=== PATIENT | male | born 1965 | race Hispanic/Latino ===

== ENCOUNTER 2016-10-11 05:39 | Emergency (ER) | payer MEDICAID, OTHER ==
[2016-10-11 05:39] VITALS: BMI 25.8
[2016-10-11] MEDS ORDERED: Sodium Chloride 0.9% 1,000 ML IV ONE (05:58)
[2016-10-11] MEDS ORDERED: Sodium Chloride 0.9% 1,000 ML ONE (06:02)
--- NOTE | 2016-10-11 06:03 | C.PDOC ---
History Of Present Illness 50 year old male, whose past medical history includes migraines, presents to the ER for evaluation of headache starting at 3am. Patient states that the symptoms feel similar to his previous migraines. He reports taking Depakote for his headaches, but states it did not help. He reports nausea and 2 episodes of vomiting. Denies dizziness, visual changes, extremity weakness, sensory changes , facial droop, slurred speech, neck pain, fever, seizure. Time Seen by Provider: 10/11/16 05:55 Chief Complaint (Nursing): Headache History Per: Patient History/Exam Limitations: no limitations Onset/Duration Of Symptoms: Hrs (Since 03:00) Current Symptoms Are (Timing): Still Present Preceeding Symptoms: None Associated Symptoms: Nausea, Vomiting Recent travel outside of the [place]: No Past Medical History Reviewed: Historical Data, Nursing Documentation, Vital Signs Vital Signs: Last Vital Signs Temp 99.0 F 10/11/16 07:03 Pulse 67 10/11/16 07:03 Resp 18 10/11/16 07:03 BP 121/78 10/11/16 07:03 Pulse Ox 97 10/11/16 07:03 - Medical History PMH: Migraine, Seizures Surgical History: No Surg Hx - [facility] Procedures APPLICATION OF SPLINT (09/04/14) REPLAC M/S IMMOB DEV NEC (09/07/14) VENOUS PUNCTURE NEC (02/16/12) Family History: States: Stroke (Father), Hypertension (Mother) - Social History Hx Tobacco Use: Yes Hx Alcohol Use: No Hx Substance Use: No - Immunization History Hx Tetanus Toxoid Vaccination: Yes Hx Influenza Vaccination: Yes Hx Pneumococcal Vaccination: Yes Review Of Systems Eyes: Negative for: Vision Change Gastrointestinal: Positive for: Nausea, Vomiting Musculoskeletal: Negative for: Neck Pain Neurological: Positive for: Headache. Negative for: Weakness, Numbness, Change in Speech, Seizures, Dizziness Physical Exam - Physical Exam Appears: Well, Non-toxic Skin: Normal Color, Warm, Dry Head: Atraumatic, Normacephalic Eye(s): bilateral: Normal Inspection, PERRL, EOMI, Other (no nystagmus) Ear(s): Bilateral: Normal Nose: Normal Oral Mucosa: Moist Throat: Normal, No Erythema Neck: Normal ROM Chest: Symmetrical, No Tenderness Cardiovascular: Rhythm Regular, No Murmur Respiratory: Normal Breath Sounds, No Rales, No Rhonchi, No Wheezing Gastrointestinal/Abdominal: Soft, No Tenderness Extremity: Bilateral: Atraumatic, Normal Color And Temperature, Normal ROM Pulses: Left Radial: Normal Neurological/Psych: Oriented x3, Normal Speech, Normal Cognition, Normal Cranial Nerves, No Cerebellar Signs, Normal Motor, Normal Sensation ED Course And Treatment O2 Sat by Pulse Oximetry: 96 (Room air) Pulse Ox Interpretation: Normal Medical Decision Making Medical Decision Making: Impression: 51 y.o male with PMH migraine c.o headache, typical of usual headaches Plan: * IV NS * Reglan * Toradol re-eval: upon reevaluation patient reports feeling better, headache has much improved. He is tolerating PO. He remains alert and oriented with no neuro deficits and vital signs stable. Disposition Counseled Patient/Family Regarding: Diagnosis, Need For Followup, Rx Given - Disposition Referrals: [facility] [Outside] Disposition: HOME/ ROUTINE Disposition Time: 07:00 Condition: IMPROVED Additional Instructions: Please follow up with your neurologist Dr Hinson for further evaluation and with primary physician Continue with your current medications, you may also take fioricet as needed Prescriptions: Acetaminophen/Butalbital/Caf [Fioricet] 1 tab PO TID PRN #20 tab PRN Reason: Headache Instructions: Migraine Headache (ED) Forms: Work Excuse - POA Present On Arrival: None - Clinical Impression Clinical Impression: Migraine - Scribe Statement The provider has reviewed the documentation as recorded by the Scribe Chandrakant Dumont All medical record entries made by the Scribe were at my direction and personally dictated by me. I have reviewed the chart and agree that the record accurately reflects my personal performance of the history, physical exam, medical decision making, and the department course for this patient. I have also personally directed, reviewed, and agree with the discharge instructions and disposition.
[2016-10-11] MEDS ORDERED: Apap-Butalbital-Caffeine 325-50-40mg Tab PO STA (06:39)
[2016-10-11] MEDS ORDERED: Apap-Butalbital-Caffeine 325-50-40mg Tab ONE (06:46)
[2016-10-11 07:04] VITALS: BP 121/78; PULSE 67; RESP 18; TEMP 99
[2016-10-13 08:39] VITALS: O2SAT 96
== END 2016-10-11 07:05 | disposition home or self-care (01) ==
LOC: C.ER 05:39
DX: G43.909 Migraine, unspecified, not intractable, without status migrainosus (principal)
CPT/HCPCS: 96361; 96374; 96375; 99284; J1885; J2765; J7040

== ENCOUNTER 2016-10-11 20:31 | Emergency (ER) | payer OTHER ==
[2016-10-11 20:31] VITALS: BMI 25.8
[2016-10-11 20:42] VITALS: BP 110/68; PULSE 65; TEMP 97.6; O2SAT 98
--- NOTE | 2016-10-11 21:57 | C.PDOC ---
History Of Present Illness 51 year old patient, with a past medical history of migraines, presents to the ED complaining of a right sided headache that woke him up from sleepat 3 am last night. Patient visited the ED this morning, was given IV medications, and prescription for Fioricet. Patient states he still had a headache when he left the ED. He took 2-3 tabs of Fioricet throughout the day and 800 mg of Ibuprofen at 7 pm with no change of pain. Patient states the headache is similar to typical migraines. Patient also complains of occasional blurry vision and nausea , usual with headache. He had 3 episodes of vomiting this morning. Patient denies fever, chills, or neck stiffness, no weakness, numbness or tingling. Patient has been taking depakote for migraine prevention, and has not missed any doses. He had a normal head CT done by his neurologist about 4 weeks ago. In the past, he notes he has sometimes needed 2 ED visits to get rid of the headache and usually Percocet helps. Time Seen by Provider: 10/11/16 21:30 Chief Complaint (Nursing): Headache History Per: Patient History/Exam Limitations: no limitations Onset/Duration Of Symptoms: Days Current Symptoms Are (Timing): Still Present Severity: Mild Quality: Aching Associated Symptoms: Blurred Vision, Nausea, Vomiting. denies: Extremity Weakness Recent travel outside of the [place]: No Additional History Per: Patient Past Medical History Reviewed: Historical Data, Nursing Documentation, Vital Signs Vital Signs: Last Vital Signs Temp 97.6 F 10/11/16 20:40 Pulse 65 10/11/16 20:40 Resp 20 10/11/16 23:02 BP 110/68 10/11/16 20:40 Pulse Ox 98 10/12/16 00:44 - Medical History PMH: Migraine, Seizures - [facility] Procedures APPLICATION OF SPLINT (09/04/14) REPLAC M/S IMMOB DEV NEC (09/07/14) VENOUS PUNCTURE NEC (02/16/12) Family History: States: Stroke (Father), Hypertension (Mother) - Social History Hx Tobacco Use: Yes Hx Alcohol Use: No Hx Substance Use: No - Immunization History Hx Tetanus Toxoid Vaccination: Yes Hx Influenza Vaccination: Yes Hx Pneumococcal Vaccination: Yes Review Of Systems Except As Marked, All Systems Reviewed And Found Negative. Constitutional: Negative for: Fever, Chills Eyes: Positive for: Vision Change Gastrointestinal: Positive for: Nausea, Vomiting Musculoskeletal: Negative for: Neck Pain Neurological: Positive for: Headache. Negative for: Weakness, Numbness Physical Exam - Physical Exam Appears: Non-toxic, No Acute Distress Skin: Warm, Dry Head: Atraumatic, Normacephalic Eye(s): bilateral: Normal Inspection Ear(s): Bilateral: Normal Throat: Normal Neck: Normal ROM, No Midline Cervical Tenderness Chest: Symmetrical, No Deformity, No Tenderness Cardiovascular: Rhythm Regular, No Murmur Respiratory: Normal Breath Sounds, No Rales, No Rhonchi, No Wheezing Gastrointestinal/Abdominal: Soft, No Tenderness Extremity: No Pedal Edema, No Calf Tenderness Neurological/Psych: Oriented x3, Normal Speech, Normal Cognition, Normal Cranial Nerves, Normal Motor, Normal Sensation Gait: Steady ED Course And Treatment O2 Sat by Pulse Oximetry: 98 (room air) Pulse Ox Interpretation: Normal Progress Note: pt reports headache greatly reduced, not fully gone, but feels well enough to go home. pt advised to f/u with his neurologist tomorrow. Reevaluation Time: 22:52 Reassessment Condition: Improved Medical Decision Making Medical Decision Making: Impression: 51 y/o male c/o right sided headache since last night Plans: -Percocet Patient is in no acute distress. Pt was instructed to follow up with PMD if symptoms persist. Disposition Counseled Patient/Family Regarding: Diagnosis, Need For Followup - Disposition Disposition: HOME/ ROUTINE Disposition Time: 22:53 Condition: IMPROVED Additional Instructions: Follow up with your neurologist tomorrow. Take your Depakote as prescribed. Return to ER for any worsening or concerning symptoms- weakness, change in vision, change in speech or sensation. Instructions: Migraine Headache (ED) Forms: General Discharge Instructions - Clinical Impression Clinical Impression: Migraine - Scribe Statement The provider has reviewed the documentation as recorded by the Donteibabel oro All medical record entries made by the Donteibabel were at my direction and personally dictated by me. I have reviewed the chart and agree that the record accurately reflects my personal performance of the history, physical exam, medical decision making, and the department course for this patient. I have also personally directed, reviewed, and agree with the discharge instructions and disposition.
[2016-10-11] MEDS ORDERED: Oxycodone/Acetaminophen 5/325 mg Tab PO STA (22:01)
[2016-10-11] MEDS ORDERED: Oxycodone/Acetaminophen 5/325 mg Tab ONE (22:08)
[2016-10-11 23:02] VITALS: RESP 20
== END 2016-10-11 23:02 | disposition home or self-care (01) ==
LOC: C.ER 20:31
DX: G43.909 Migraine, unspecified, not intractable, without status migrainosus (principal)

== ENCOUNTER 2017-01-09 16:37 | Emergency (ER) | payer MEDICAID, OTHER ==
[2017-01-09 16:37] VITALS: BMI 25.8
--- NOTE | 2017-01-09 17:12 | C.PDOC ---
History Of Present Illness 51 yo male w/PMhx of chronic lower back edward, migraine, hx of sz, come in for evaluation of Right sided mid/lower back pain gradually developed since yesterday " after slipped and twisted my back". Pt sts, took Ibuprofen 800 mg yesterday without improvement. Today, pain is severe, localized, " my back stiff , pain to move". Pain is localized, worse with movement. Otherwise, pt denies complete fall, fever, chills, CP, SOB, dyspnea, diaphoresis, palpitation, abd. pain, N/V/D, UTi sx, saddle anesthesia, incontinence, denies weakness, sensory or vascular deficist to B/L LEs. AMbulate to ED for evaluation, not in any apparent distress. (Annabella Wong) History Per: Patient Onset/Duration Of Symptoms: Gradual Time Seen by Provider: 01/09/17 17:09 Chief Complaint (Nursing): Back Pain Past Medical History Reviewed: Historical Data, Nursing Documentation, Vital Signs - Medical History PMH: Anxiety, Migraine, Seizures Denies: Chronic Kidney Disease Family History: States: Stroke (Father), Hypertension (Mother) - Social History Hx Tobacco Use: Yes Hx Alcohol Use: No Hx Substance Use: No - Immunization History Hx Tetanus Toxoid Vaccination: Yes Hx Influenza Vaccination: Yes Hx Pneumococcal Vaccination: Yes Vital Signs: Last Vital Signs Temp 97.9 F 01/09/17 18:24 Pulse 65 01/09/17 18:24 Resp 20 01/09/17 18:24 BP 115/78 01/09/17 18:24 Pulse Ox 97 01/09/17 18:24 - [facility] Procedures APPLICATION OF SPLINT (09/04/14) REPLAC M/S IMMOB DEV NEC (09/07/14) VENOUS PUNCTURE NEC (02/16/12) Review Of Systems Except As Marked, All Systems Reviewed And Found Negative. Constitutional: Negative for: Fever, Chills ENT: Negative for: Throat Pain Cardiovascular: Negative for: Chest Pain, Palpitations Respiratory: Negative for: Cough, Shortness of Breath Gastrointestinal: Negative for: Nausea, Vomiting, Abdominal Pain, Diarrhea Genitourinary: Negative for: Dysuria, Frequency, Incontinence Musculoskeletal: Positive for: Back Pain. Negative for: Neck Pain Skin: Negative for: Rash, Bruising Neurological: Negative for: Weakness, Numbness Physical Exam - Physical Exam Appears: Well, No Acute Distress Skin: Normal Color, Warm, Dry, No Rash, No Ecchymosis Head: Atraumatic, Normacephalic Eye(s): bilateral: PERRL Neck: Normal ROM, No Midline Cervical Tenderness, No Paracervical Tenderness, No Step Off Deformity, Supple Chest: Symmetrical Cardiovascular: Rhythm Regular Respiratory: No Stridor, No Wheezing Gastrointestinal/Abdominal: Soft, No Tenderness Back: No CVA Tenderness, No Vertebral Tenderness, Decreased ROM (due to pain), Muscle Spasm, Paraspinal Tenderness (diffuse Right sided paraspinal thoracic extend down to upper lumbar tenderness with moderate muscle spasm. No midline tenderness, no deformity, no skin changes.) Extremity: No Tenderness, No Pedal Edema, No Deformity, No Swelling Neurological/Psych: Oriented x3, Normal Speech, Normal Motor, Normal Sensation, Normal Reflexes ED Course And Treatment O2 Sat by Pulse Oximetry: 98 Pulse Ox Interpretation: Normal Progress Note: Xray was offered to patient-refused, " no fall, I dont think I have fractures". On re-evaluation, pt is afebrile, hemodynamicaly stable. non- toxic. Ambulatory in ED with stable gait. PulseOx 98% RA. Neck: Supple, (-) midline tenderness. Lungs: CTA B/L, BS equal B/L. CVS: (+)S1S2, reg. Abd: Benign. back: (-) CVA tenderness. Pt has clinical findings c/w back strain. Pt advised. ref. to f/u with PM Din 2-3 days for re-eval. return to ED if any worsening or new changes. Disposition Counseled Patient/Family Regarding: Diagnosis, Need For Followup, Rx Given - Disposition Disposition Time: 17:44 - Disposition Referrals: [facility] [Outside] Disposition: HOME/ ROUTINE Condition: STABLE Additional Instructions: LIght duty, avoid physical activity for 1 week take medication for pain as prescribed as need Follow up with PMD in 2-3 days for re-evaluation. Return to ED if any worsening or new changes. Prescriptions: Methocarbamol [Robaxin] 500 mg PO TID #14 tab traMADol [Ultram] 50 mg PO TID #7 tab Instructions: Muscle Spasm (ED), Back Pain (ED) Forms: [employer] (Greenlandic), Work Excuse - Clinical Impression Clinical Impression: Thoracic back sprain
[2017-01-09 18:24] VITALS: BP 115/78; PULSE 65; RESP 20; TEMP 97.9
[2017-01-09 19:41] VITALS: O2SAT 98
== END 2017-01-09 18:40 | disposition home or self-care (01) ==
LOC: C.ER 16:37
DX: S23.3XXA Sprain of ligaments of thoracic spine, initial encounter (principal); X50.1XXA Overexertion from prolonged static or awkward postures, initial encounter; Y92.9 Unspecified place or not applicable
CPT/HCPCS: 96372; 99283; J1885

== ENCOUNTER 2017-01-16 03:20 | Emergency (ER) | payer OTHER ==
[2017-01-16 03:20] VITALS: BMI 25.8
[2017-01-16 03:26] VITALS: PULSE 76; RESP 16; O2SAT 98
[2017-01-16] MEDS ORDERED: Sodium Chloride 0.9% 1,000 ML IV ONE (03:33)
[2017-01-16 03:46] LABS: BASO # 0.1 K/uL (0.0-0.2); BASO % 1.1 % (0.0-2.0); EOS # 0.3 K/uL (0.0-0.7); EOS % 2.7 % (0.0-4.0); HEMATOCRIT 43.1 % (35.0-51.0); LYMPH # 4.3 K/uL (1.0-4.3); LYMPH % 45.9 % (20.0-40.0); MEAN CELL VOLUME 93.3 fL (80.0-94.0); MEAN CORPUSCULAR HEMOGLOBIN 33.2 pg (27.0-31.0); MEAN CORPUSCULAR HGB CONC 35.6 g/dL (33.0-37.0); MEAN PLATELET VOLUME 9.1 fL (7.2-11.7); MONO # 1.1 K/uL (0.0-0.8); MONO % 11.4 % (0.0-10.0); NRBC % 0.1 % (0.0-2.0); RED CELL DISTRIBUTION WIDTH 13.9 % (11.5-14.5); WHITE BLOOD COUNT 9.3 K/uL (4.8-10.8)
[2017-01-16] MEDS ORDERED: Sodium Chloride 0.9% 1,000 ML ONE (03:51)
[2017-01-16 04:00] LABS: CHLORIDE 102 mmol/L (98-107)
[2017-01-16 04:01] LABS: SODIUM 141 mmol/L (132-148)
[2017-01-16 04:03] LABS: ALB/GLOB RATIO 1.1 (1.0-2.1); ALKALINE PHOSPHATASE 117 U/L (38-126); AST/SGOT 26 U/L (17-59); BILIRUBIN,TOTAL 0.5 mg/dL (0.2-1.3); CARBON DIOXIDE 22 mmol/L (22-30); GFR AFRICAN-AMERICAN > 60; TOTAL PROTEIN 7.6 g/dL (6.3-8.3)
[2017-01-16 04:04] LABS: ALT/SGPT 38 U/L (21-72); BLOOD UREA NITROGEN 14 mg/dL (9-20); CALCIUM 9.2 mg/dl (8.6-10.4); GLUCOSE,RANDOM 123 mg/dL (75-110)
--- NOTE | 2017-01-16 04:12 | C.PDOC ---
History Of Present Illness 51 year old male who presents to the ER with a complaint of an anxiety reaction to his new repan medication. Patient reports he is feeling increasingly anxious ; denies difficulty breathing, difficulty swallowing, or itchiness. Chief Complaint (Nursing): Allergic Reaction History Per: Patient History/Exam Limitations: no limitations Onset/Duration Of Symptoms: Hrs Current Symptoms Are (Timing): Still Present Possible Cause: Medication Associated Symptoms: denies: Skin Rash, Swelling, Trouble Swallowing, Dizziness , Itching Home/EMS Treatment: None Recent travel outside of the [place]: No Past Medical History Reviewed: Historical Data, Nursing Documentation, Vital Signs Vital Signs: Last Vital Signs Temp 97.4 F L 01/16/17 03:25 Pulse 76 01/16/17 03:25 Resp 16 01/16/17 03:25 BP 122/85 01/16/17 03:25 Pulse Ox 98 01/16/17 04:43 - Medical History PMH: Anxiety, Migraine, Seizures - [facility] Procedures APPLICATION OF SPLINT (09/04/14) REPLAC M/S IMMOB DEV NEC (09/07/14) VENOUS PUNCTURE NEC (02/16/12) Family History: States: Stroke (Father), Hypertension (Mother) - Social History Hx Tobacco Use: Yes Hx Alcohol Use: No Hx Substance Use: No - Immunization History Hx Tetanus Toxoid Vaccination: Yes Hx Influenza Vaccination: Yes Hx Pneumococcal Vaccination: Yes Review Of Systems Constitutional: Negative for: Fever, Chills ENT: Negative for: Mouth Swelling, Throat Swelling Gastrointestinal: Negative for: Nausea, Vomiting, Diarrhea Skin: Negative for: Rash Psych: Positive for: Anxiety Physical Exam - Physical Exam Appears: Non-toxic, No Acute Distress, Other (Anxious, Alert, Conscious) Skin: Normal Color, Warm, Dry Head: Atraumatic, Normacephalic Oral Mucosa: Moist Chest: Symmetrical, No Tenderness Cardiovascular: Rhythm Regular, No Murmur Respiratory: Normal Breath Sounds, No Rales, No Rhonchi, No Wheezing Gastrointestinal/Abdominal: Soft, No Tenderness Neurological/Psych: Oriented x3, Normal Speech, Normal Cognition ED Course And Treatment - Laboratory Results Result Diagrams: 01/16/17 03:41 01/16/17 03:41 ECG: Interpreted By Me, Viewed By Me ECG Rhythm: Sinus Rhythm, ST/T Changes, Nonspecific Changes ECG Interpretation: No Acute Changes Interpretation Of ECG: NSR, non spc ST-T changes, abnormal tracings Rate From EC O2 Sat by Pulse Oximetry: 98 Pulse Ox Interpretation: Normal Progress Note: EKG ordered. Ativan and IV fluids administered. Disposition Counseled Patient/Family Regarding: Diagnosis - Disposition Referrals: [facility] at [facility] [Outside] Disposition: HOME/ ROUTINE Disposition Time: 05:00 Condition: STABLE Prescriptions: ALPRAZolam HALF TABLET [Xanax HALF TABLET] 0.125 mg PO TID #7 tab Instructions: Anxiety (ED), Caffeine Use (ED) Forms: [employer] (Bermudian) - Clinical Impression Clinical Impression: Anxiety, Caffeine adverse reaction - Scribe Statement The provider has reviewed the documentation as recorded by the Scribe Chandrakant Dumont All medical record entries made by the Scribe were at my direction and personally dictated by me. I have reviewed the chart and agree that the record accurately reflects my personal performance of the history, physical exam, medical decision making, and the department course for this patient. I have also personally directed, reviewed, and agree with the discharge instructions and disposition.
[2017-01-16] MEDS ORDERED: DiphenhydrAMINE 50 mg/ml Inj IM STA (04:24)
[2017-01-16] MEDS ORDERED: DiphenhydrAMINE 50 mg/ml Inj ONE (04:27)
[2017-01-16 05:11] VITALS: BP 115/80; TEMP 97.6
--- NOTE | 2017-01-18 11:52 | CARD ---
APPROVED REPORT EKG Measurement Heart [id number] <Conclusion> Normal sinus rhythm Nonspecific T wave abnormality Abnormal ECG
== END 2017-01-16 05:11 | disposition home or self-care (01) ==
LOC: C.ER 03:20 → SUPCPDRO 03:20 → C.ER 05:11
DX: F41.9 Anxiety disorder, unspecified (principal); T43.615A Adverse effect of caffeine, initial encounter
CPT/HCPCS: 80053; 80164; 85025; 96372; 96374; 96376; 99284; J1200; J2060; J7040

== ENCOUNTER 2017-03-01 01:43 | Emergency (ER) | payer OTHER ==
[2017-03-01 01:43] VITALS: BMI 25.8
[2017-03-01 01:53] VITALS: RESP 16; O2SAT 97
[2017-03-01] MEDS ORDERED: Oxycodone/Acetaminophen 5/325 mg Tab PO STA ×2 (02:24→03:32)
--- NOTE | 2017-03-01 02:29 | C.PDOC ---
History Of Present Illness 51 year old patient, with a past medical history of migraines, presents to the ED complaining of a L sided migraine headache that started gradually this evening, states that he usually takes his depakote daily as prophylaxis with no improvement, also took motrin with no relief. Reports that symptoms are associated with nausea, and blurry vision with is typical of his aura. He states that his last normal head CT was a few months ago. Patient states the headache is similar to typical migraines, usually gets a dose of percocet in the ER with improvement. Patient denies fever, chills, or neck stiffness, no vomiting, no weakness, numbness or tingling. Neuro Cecilio Time Seen by Provider: 03/01/17 01:51 Chief Complaint (Nursing): Headache History Per: Patient History/Exam Limitations: no limitations Onset/Duration Of Symptoms: Days (1) Current Symptoms Are (Timing): Still Present Severity: Moderate Quality: Pressure Preceeding Symptoms: Visual Disturbances, Known Migraine Symptoms Associated Symptoms: Nausea Past Medical History Vital Signs: Last Vital Signs Temp 97.7 F 03/01/17 01:51 Pulse 70 03/01/17 01:51 Resp 16 03/01/17 01:51 BP 130/92 H 03/01/17 01:51 Pulse Ox 97 03/01/17 02:33 - Medical History PMH: Anxiety, Migraine, Seizures Denies: Chronic Kidney Disease - [facility] Procedures APPLICATION OF SPLINT (09/04/14) REPLAC M/S IMMOB DEV NEC (09/07/14) VENOUS PUNCTURE NEC (02/16/12) Family History: States: Stroke (Father), Hypertension (Mother) - Social History Hx Tobacco Use: Yes Hx Alcohol Use: No Hx Substance Use: No - Immunization History Hx Tetanus Toxoid Vaccination: Yes Hx Influenza Vaccination: Yes Hx Pneumococcal Vaccination: Yes Review Of Systems Constitutional: Negative for: Fever, Weakness, Malaise Eyes: Negative for: Pain, Vision Change, Redness ENT: Negative for: Ear Pain, Nose Pain, Mouth Pain Cardiovascular: Negative for: Chest Pain, Palpitations Respiratory: Negative for: Cough, Shortness of Breath Gastrointestinal: Negative for: Nausea, Vomiting, Abdominal Pain Musculoskeletal: Negative for: Neck Pain, Back Pain Skin: Negative for: Rash, Lesions, Jaundice Neurological: Negative for: Weakness, Numbness, Incoordination, Change in Speech , Confusion, Altered Mental Status Psych: Negative for: Anxiety, Depression, Psychosis Physical Exam - Physical Exam Appears: Well, Non-toxic, In Acute Distress (moderate painful distress) Skin: Normal Color, Warm, Dry, No Pale, No Rash, No Jaundice Head: Atraumatic, Normacephalic Eye(s): bilateral: Normal Inspection, PERRL, EOMI Ear(s): Bilateral: Normal Nose: Normal Oral Mucosa: Moist Throat: Normal, No Erythema, No Exudate Neck: Normal, Normal ROM, No Midline Cervical Tenderness, No Paracervical Tenderness, Supple Lymphatic: No Adenopathy Chest: Symmetrical, No Deformity, No Tenderness Cardiovascular: Rhythm Regular, No Friction Rub, No Murmur Respiratory: Normal Breath Sounds, No Rales, No Rhonchi, No Wheezing Extremity: Normal ROM, No Tenderness, No Swelling Neurological/Psych: Oriented x3, Normal Speech, Normal Cognition, Normal Cranial Nerves, Normal Motor, Normal Sensation Gait: Steady ED Course And Treatment O2 Sat by Pulse Oximetry: 97 Medical Decision Making Medical Decision Making: Impression: 51 y/o male c/o L sided headache. Plans: -Percocet 1 tab po On first re-evaluation, patient reports that his headache is improving, however still has some pain and is requesting for another dose of medication for his headache. Patient given percocet 1 tab po. On second re-evaluation, patient reports significant improvement of his headache. Patient is in no acute distress. Repeat neuro exam shows no acute focal findings. Pt was instructed to follow up with PMD or neuro if symptoms persist. Disposition Counseled Patient/Family Regarding: Diagnosis, Need For Followup - Disposition Disposition: HOME/ ROUTINE Disposition Time: 03:45 Condition: IMPROVED Additional Instructions: Follow up with pmd or neuro in 2 days for re-evaluation. Return to the ER at any time for any new or worsening symptoms. 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
[2017-03-01] MEDS ORDERED: Oxycodone/Acetaminophen 5/325 mg Tab ONE ×2 (02:39→03:40)
[2017-03-01 03:44] VITALS: BP 118/78; PULSE 67; TEMP 97.8
== END 2017-03-01 03:50 | disposition home or self-care (01) ==
LOC: C.ER 01:43
DX: G43.909 Migraine, unspecified, not intractable, without status migrainosus (principal)

== ENCOUNTER 2017-03-12 18:54 | Emergency (ER) | payer OTHER ==
[2017-03-12 18:55] VITALS: BMI 25.8
[2017-03-12 19:01] VITALS: RESP 20; TEMP 97.3
[2017-03-12] MEDS ORDERED: Sodium Chloride 0.9% 1,000 ML IV ONE (19:22)
[2017-03-12] MEDS ORDERED: DiphenhydrAMINE 50 mg/ml Inj IVP STA (19:24)
[2017-03-12] MEDS ORDERED: Sodium Chloride 0.9% 1,000 ML ONE (19:31)
[2017-03-12] MEDS ORDERED: DiphenhydrAMINE 50 mg/ml Inj ONE (19:31)
--- NOTE | 2017-03-12 19:56 | C.PDOC ---
History Of Present Illness 51 year old male presents to the ED for evaluation of tingling sensation to left side face and left arm since 15:00 today. Patient reports developing a headache 2 hours after developing tingling sensation. He admits to photophobia, nausea, and lightheadedness, and states that these symptoms are typical of his migraines. He denies visual changes, facial droop, slurred speech, extremity weakness, chest pain, palpitations, shortness of breath. Patient tried taking 800mg ibuprofen prior to arrival. He has a history of seizures and is currently on depakote; neurologist is Dr. Hernandes. Code stroke called in ER triage prior to my evaluation of patient. Time Seen by Provider: 03/12/17 19:07 Chief Complaint (Nursing): Weakness/Neurological Deficit History Per: Patient History/Exam Limitations: no limitations Onset/Duration Of Symptoms: Hrs Current Symptoms Are (Timing): Still Present Associated Symptoms Preceding Syncopal Episode: Lightheadedness Fall Associated With With Symptoms: No Severity: Moderate Past Medical History Reviewed: Historical Data, Nursing Documentation, Vital Signs Vital Signs: Last Vital Signs Temp 97.3 F L 03/12/17 19:00 Pulse 74 03/12/17 20:52 Resp 20 03/12/17 20:52 BP 114/75 03/12/17 20:52 Pulse Ox 98 03/13/17 01:34 - Medical History PMH: Anxiety, Migraine, Seizures - [facility] Procedures APPLICATION OF SPLINT (09/04/14) REPLAC M/S IMMOB DEV NEC (09/07/14) VENOUS PUNCTURE NEC (02/16/12) Family History: States: Stroke (Father), Hypertension (Mother) - Social History Hx Tobacco Use: Yes Hx Alcohol Use: No Hx Substance Use: No - Immunization History Hx Tetanus Toxoid Vaccination: Yes Hx Influenza Vaccination: Yes Hx Pneumococcal Vaccination: Yes Review Of Systems Except As Marked, All Systems Reviewed And Found Negative. Eyes: Positive for: Other (Photophobia). Negative for: Vision Change Cardiovascular: Positive for: Light Headedness. Negative for: Chest Pain, Palpitations Respiratory: Negative for: Shortness of Breath Gastrointestinal: Positive for: Nausea. Negative for: Vomiting, Abdominal Pain Neurological: Positive for: Headache. Negative for: Weakness, Incoordination, Change in Speech, Confusion, Seizures, Altered Mental Status, Dizziness, Other ( Facial droop) Physical Exam - Physical Exam Appears: Well, Non-toxic, Other (Mild to moderate pain) Skin: Normal Color, Warm, Dry, No Rash Head: Atraumatic, Normacephalic Eye(s): bilateral: Normal Inspection, PERRL, EOMI Oral Mucosa: Moist Neck: Normal, Supple Cardiovascular: Rhythm Regular (Rate Regular) Respiratory: Normal Breath Sounds, No Rales, No Rhonchi, No Wheezing Extremity: Normal ROM Extremity: Bilateral: Atraumatic, Normal Color And Temperature, Normal ROM Neurological/Psych: Oriented x3, Normal Speech, Normal Cognition, Normal Cranial Nerves, No Cerebellar Signs, Normal Motor (5/5 motor strength all ext ) , Normal Sensation, No Dysarthria ED Course And Treatment - Laboratory Results Result Diagrams: 03/12/17 20:00 03/12/17 20:00 O2 Sat by Pulse Oximetry: 98 (RA) Pulse Ox Interpretation: Normal - CT Scan/US Head CT CT/US Interpretation: EXAM: CT Head Without Intravenous Contrast. EXAM DATE/ TIME: 03/12/2017 7:04 PM. CLINICAL HISTORY: 51 years old, male; Signs and symptoms; Dizziness and weakness, facial. TECHNIQUE: Axial computed tomography images of the head/brain without intravenous contrast. All CT scans at. this facility use one or more dose reduction techniques, viz.: automated exposure control; ma/kV. adjustment per patient size (including targeted exams where dose is matched to indication; i.e. head);. or iterative reconstruction technique. COMPARISON: No relevant prior studies available. FINDINGS: Brain : Unremarkable. No hemorrhage. No significant white matter disease. No edema. Ventricles: Unremarkable. No ventriculomegaly. Bones/joints: Unremarkable. No acute fracture. Soft tissues: Unremarkable. Sinuses: Unremarkable as visualized. No acute sinusitis. Mastoid air cells: Unremarkable as visualized. No mastoid effusion. IMPRESSION: No acute findings Progress Note: CT head done due to Code Stroke activation prior to my evaluation. Patient given IV NS bolus, IV reglan, IV benadryl IV toradol. Patient reassessed, still c/o headache - IV morphine ordered. Reevaluation Time: 22:00 Reassessment Condition: Improved (Patient resting comfortably, states his headache has resolved and he is feeling much better. Patient discharged home with Rx for Fiorecet. He was instructed to follow up with neurologist within 1 week, and understands he should return to ED if symptoms worsen.) Disposition Counseled Patient/Family Regarding: Studies Performed, Diagnosis, Need For Followup, Rx Given - Disposition Referrals: Gera Hernandes MD [Staff Provider] - Disposition: HOME/ ROUTINE Disposition Time: 22:00 Condition: STABLE Additional Instructions: FOLLOW UP WITH YOUR NEUROLOGIST WITHIN 1 WEEK USE MEDICATION NEEDED FOR MIGRAINE RETURN TO ER IF SYMPTOMS WORSEN Prescriptions: Acetaminophen/Butalbital/Caf [Fioricet] 1 tab PO TID PRN #20 tab PRN Reason: Headache Instructions: Migraine Headache (ED) Forms: [employer] (Gibraltarian) Print Language: DIVEHI - POA Present On Arrival: None - Clinical Impression Clinical Impression: Migraine - Scribe Statement The provider has reviewed the documentation as recorded by the Donteibabel Ceja Provider Attestation: All medical record entries made by the Donteibe were at my direction and personally dictated by me. I have reviewed the chart and agree that the record accurately reflects my personal performance of the history, physical exam, medical decision making, and the department course for this patient. I have also personally directed, reviewed, and agree with the discharge instructions and disposition.
[2017-03-12 20:09] LABS: BASO # 0.1 K/uL (0.0-0.2); BASO % 0.9 % (0.0-2.0); EOS # 0.2 K/uL (0.0-0.7); EOS % 3.6 % (0.0-4.0); HEMATOCRIT 41.7 % (35.0-51.0); LYMPH # 2.5 K/uL (1.0-4.3); LYMPH % 37.3 % (20.0-40.0); MEAN CELL VOLUME 95.4 fL (80.0-94.0); MEAN CORPUSCULAR HGB CONC 35.6 g/dL (33.0-37.0); MEAN PLATELET VOLUME 10.1 fL (7.2-11.7); MONO # 0.8 K/uL (0.0-0.8); MONO % 11.2 % (0.0-10.0); NRBC % 0.1 % (0.0-2.0); RED CELL DISTRIBUTION WIDTH 13.6 % (11.5-14.5); WHITE BLOOD COUNT 6.8 K/uL (4.8-10.8)
[2017-03-12 20:13] LABS: CHLORIDE 103 mmol/L (98-107); POTASSIUM 4.3 mmol/L (3.6-5.2); SODIUM 134 mmol/L (132-148)
[2017-03-12 20:15] LABS: GFR AFRICAN-AMERICAN > 60
[2017-03-12 20:16] LABS: ALB/GLOB RATIO 1.1 (1.0-2.1); ALKALINE PHOSPHATASE 86 U/L (38-126); ALT/SGPT 31 U/L (21-72); AST/SGOT 19 U/L (17-59); BILIRUBIN,TOTAL 0.4 mg/dL (0.2-1.3); BLOOD UREA NITROGEN 12 mg/dL (9-20); CALCIUM 8.8 mg/dl (8.6-10.4); CARBON DIOXIDE 21 mmol/L (22-30); GLUCOSE,RANDOM 103 mg/dL (75-110); TOTAL PROTEIN 7.7 g/dL (6.3-8.3)
[2017-03-12 20:52] VITALS: BP 114/75; PULSE 74
[2017-03-12 21:05] VITALS: O2SAT 98
--- NOTE | 2017-03-13 08:04 | CT ---
PROCEDURE: CT HEAD WITHOUT CONTRAST. HISTORY: WEAKNESS COMPARISON: None available. TECHNIQUE: Axial computed tomography images were obtained through the head/brain without intravenous contrast. Radiation dose: Total exam DLP = 1002 mGy-cm. This CT exam was performed using one or more of the following dose reduction techniques: Automated exposure control, adjustment of the mA and/or kV according to patient size, and/or use of iterative reconstruction technique. FINDINGS: HEMORRHAGE: No intracranial hemorrhage. BRAIN: No mass effect or edema. No atrophy or chronic microvascular ischemic changes. VENTRICLES: Unremarkable. No hydrocephalus. CALVARIUM: Unremarkable. PARANASAL SINUSES: Unremarkable as visualized. No significant inflammatory changes. MASTOID AIR CELLS: Unremarkable as visualized. No inflammatory changes. OTHER FINDINGS: None. IMPRESSION: No acute intracranial abnormality. If focal neurologic deficit persists, consider MRI. These findings were preliminarily reported at 7:20 p.m. on 03/12/[address] Sravani Wong from [facility].
== END 2017-03-12 21:40 | disposition home or self-care (01) ==
LOC: C.ER 18:54
DX: G43.909 Migraine, unspecified, not intractable, without status migrainosus (principal)
CPT/HCPCS: 70450; 80053; 82550; 82553; 84484; 85025; 85610; 85730; 96361; 96374; 96375; 99285; J1200; J1885; J2270; J2765; J7040

== ENCOUNTER 2017-07-05 06:24 | Emergency (ER) | payer OTHER ==
[2017-07-05 06:24] VITALS: BMI 25.8
[2017-07-05 06:32] VITALS: O2SAT 95
[2017-07-05] MEDS ORDERED: Sodium Chloride 0.9% 1,000 ML IV ONE (07:17)
[2017-07-05] MEDS ORDERED: Albuterol-Ipratrop 3 mg / 0.5 (3 ml) UD INH STA (07:19)
[2017-07-05] MEDS ORDERED: Sodium Chloride 0.9% 1,000 ML ONE (07:30)
[2017-07-05] MEDS ORDERED: Albuterol-Ipratrop 3 mg / 0.5 (3 ml) UD ONE (07:38)
--- NOTE | 2017-07-05 07:41 | C.PDOC ---
History Of Present Illness 52 y/o male with history of Seizures presents to ED with complaints of productive cough, congestion and body aches for 7 days. Patient reports cough is productive with yellow phlegm and reports tactile fever. Patient denies recent seizure activity, sick contacts, nausea, vomiting or any other complaints at this time. Time Seen by Provider: 07/05/17 07:12 Chief Complaint (Nursing): Flu-like Symptoms History Per: Patient History/Exam Limitations: no limitations Onset/Duration Of Symptoms: Days Current Symptoms Are (Timing): Still Present Associated Symptoms: Fever, Cough Past Medical History Reviewed: Historical Data, Nursing Documentation, Vital Signs Vital Signs: Last Vital Signs Temp 97.7 F 07/05/17 06:28 Pulse 86 07/05/17 06:28 Resp 22 07/05/17 06:28 BP 118/92 H 07/05/17 06:28 Pulse Ox 95 07/05/17 08:21 - Medical History PMH: Anxiety, Migraine, Seizures Surgical History: No Surg Hx - [facility] Procedures APPLICATION OF SPLINT (09/04/14) REPLAC M/S IMMOB DEV NEC (09/07/14) VENOUS PUNCTURE NEC (02/16/12) Family History: States: Stroke (Father), Hypertension (Mother) - Social History Hx Tobacco Use: Yes Hx Alcohol Use: No Hx Substance Use: No - Immunization History Hx Tetanus Toxoid Vaccination: Yes Hx Influenza Vaccination: Yes Hx Pneumococcal Vaccination: Yes Review Of Systems Except As Marked, All Systems Reviewed And Found Negative. Constitutional: Positive for: Fever ENT: Positive for: Nose Congestion Respiratory: Positive for: Cough Musculoskeletal: Positive for: Other (body aches) Physical Exam - Physical Exam Appears: Non-toxic, No Acute Distress Skin: Warm, Dry, No Rash Head: Atraumatic, Normacephalic Eye(s): bilateral: Normal Inspection Oral Mucosa: Moist Throat: Normal, No Erythema, No Exudate Neck: Supple Cardiovascular: Rhythm Regular Respiratory: Rales (bilaterally), No Rhonchi, No Wheezing Gastrointestinal/Abdominal: Soft, No Tenderness, No Guarding, No Rebound Neurological/Psych: Oriented x3 ED Course And Treatment - Laboratory Results Result Diagrams: 07/05/17 08:11 07/05/17 08:11 ECG: Interpreted By Me, Viewed By Me ECG Rhythm: Sinus Rhythm Interpretation Of ECG: T wave inversion in V1, V2- V6 Rate From EC (BPM) O2 Sat by Pulse Oximetry: 95 (RA) Pulse Ox Interpretation: Normal Medical Decision Making Medical Decision Making: Assessment: Bronchitis 0948: Patient improved. Will discharge home and treat as bronchitis. Advised patient to follow up with pmd in 2 days. Return to ER if symptoms worsens or progress. Disposition Counseled Patient/Family Regarding: Studies Performed, Diagnosis, Need For Followup, Rx Given - Disposition Referrals: Phani Galo DDS [Non-Staff] - Disposition: HOME/ ROUTINE Disposition Time: 09:49 Condition: IMPROVED Additional Instructions: follow up with your doctor in 2 days call to make an appointment take medications as prescribed return to ER if symptoms worsens or progress Prescriptions: Albuterol HFA [Ventolin HFA 90 mcg/actuation (8 g)] 2 puff IH [id number] #1 puff Azithromycin [Zithromax] 250 mg PO DAILY #4 tab Naproxen [Naprosyn] 500 mg PO BID PRN #16 tab PRN Reason: Pain, Moderate (4-7) Instructions: Acute Bronchitis (ED) Forms: [facility] (Uruguayan), General Discharge Instructions - Clinical Impression Clinical Impression: Bronchitis - Scribe Statement The provider has reviewed the documentation as recorded by the Scribe Kathy Byrd All medical record entries made by the Donteibabel were at my direction and personally dictated by me. I have reviewed the chart and agree that the record accurately reflects my personal performance of the history, physical exam, medical decision making, and the department course for this patient. I have also personally directed, reviewed, and agree with the discharge instructions and disposition.
[2017-07-05 08:19] LABS: BASO % 0.6 % (0.0-2.0); EOS # 0.1 K/uL (0.0-0.7); HEMOGLOBIN 14.4 g/dL (12.0-18.0); LYMPH # 1.3 K/uL (1.0-4.3); LYMPH % 16.4 % (20.0-40.0); MEAN CORPUSCULAR HEMOGLOBIN 32.7 pg (27.0-31.0); MEAN CORPUSCULAR HGB CONC 35.5 g/dL (33.0-37.0); MEAN PLATELET VOLUME 9.4 fL (7.2-11.7); MONO # 0.8 K/uL (0.0-0.8); MONO % 10.8 % (0.0-10.0); NEUT # 5.5 K/uL (1.8-7.0); NEUT % 71.2 % (50.0-75.0); NRBC % 0.1 % (0.0-2.0); RBC 4.4 Mil/uL (4.40-5.90); RED CELL DISTRIBUTION WIDTH 13.4 % (11.5-14.5); WHITE BLOOD COUNT 7.8 K/uL (4.8-10.8)
[2017-07-05 08:20] LABS: MEAN CELL VOLUME 92.2 fL (80.0-94.0)
[2017-07-05 08:31] LABS: ALB/GLOB RATIO 1.2 (1.0-2.1); ALBUMIN 3.8 g/dL (3.5-5.0); ALT/SGPT 23 U/L (21-72); AST/SGOT 25 U/L (17-59); BLOOD UREA NITROGEN 10 mg/dL (9-20); GFR AFRICAN-AMERICAN > 60; GFR NON-AFRICAN AMERICAN > 60
--- NOTE | 2017-07-05 09:33 | RAD ---
HISTORY: SOB COMPARISON: 07/31/2016 TECHNIQUE: Chest PA and lateral FINDINGS: LUNGS: No active pulmonary disease. PLEURA: No significant pleural effusion identified. No pneumothorax apparent. CARDIOVASCULAR: Normal. OSSEOUS STRUCTURES: No significant abnormalities. VISUALIZED UPPER ABDOMEN: Normal. OTHER FINDINGS: None. IMPRESSION: No active disease.
[2017-07-05] MEDS ORDERED: Divalproex 500 mg ER Tab PO SCH (10:00)
[2017-07-05] MEDS ORDERED: Divalproex 500 mg DR Tab PO ONE (10:00)
[2017-07-05 10:03] VITALS: BP 97/62; PULSE 70; RESP 18; TEMP 98.3
--- NOTE | 2017-07-07 23:23 | CARD ---
APPROVED REPORT EKG Measurement Heart [id number] <Conclusion> Normal sinus rhythm T wave abnormality, consider inferior ischemia T wave abnormality, consider anterolateral ischemia Abnormal ECG
== END 2017-07-05 10:20 | disposition home or self-care (01) ==
LOC: C.ER 06:24
DX: J40 Bronchitis, not specified as acute or chronic (principal); Z87.891 Personal history of nicotine dependence
CPT/HCPCS: 71046; 80053; 80164; 82550; 84484; 85025; 87804; 94640; 96361; 96374; 96375; 99284; J1885; J2405; J7040

== ENCOUNTER 2017-09-11 01:05 | Emergency (ER) | payer OTHER ==
[2017-09-11 01:06] VITALS: BMI 25.8
[2017-09-11 01:34] VITALS: O2SAT 96
--- NOTE | 2017-09-11 01:52 | C.PDOC ---
History Of Present Illness 52yo male with history of headaches, sleep apnea induces seizures and currently taking Depakote, presents to ED for evaluation after a seizure. Patient states earlier today he had a headache and napped, reports he awoke from his sleep due a sense of "inability to breathe." Patient states he has had similar episodes in past and usually as associated seizures with "inability to breathe." He is now complaining of generalized weakness and reports he bit his tongue. He denies any incontinence, headache, weakness, numbness. No other complaints. Time Seen by Provider: 09/11/17 01:30 Chief Complaint (Nursing): Seizure History Per: Patient History/Exam Limitations: no limitations Recent Seizure Activity Began: Unknown Quality Of Seizure: Generalized Past Medical History Reviewed: Historical Data, Nursing Documentation, Vital Signs Vital Signs: Last Vital Signs Temp 98 F 09/11/17 03:44 Pulse 66 09/11/17 03:44 Resp 16 09/11/17 03:44 BP 110/70 09/11/17 03:44 Pulse Ox 96 09/11/17 03:44 - Medical History PMH: Anxiety, Migraine, Seizures, Sleep Apnea Denies: Chronic Kidney Disease Surgical History: No Surg Hx - [facility] Procedures APPLICATION OF SPLINT (09/04/14) REPLAC M/S IMMOB DEV NEC (09/07/14) VENOUS PUNCTURE NEC (02/16/12) Family History: States: Stroke (Father), Hypertension (Mother) - Social History Hx Tobacco Use: Yes Hx Alcohol Use: No Hx Substance Use: No - Immunization History Hx Tetanus Toxoid Vaccination: Yes Hx Influenza Vaccination: Yes Hx Pneumococcal Vaccination: No Review Of Systems Except As Marked, All Systems Reviewed And Found Negative. ENT: Positive for: Other (tongue bite) Neurological: Positive for: Seizures. Negative for: Weakness, Numbness Physical Exam - Physical Exam Appears: Non-toxic, No Acute Distress Skin: Normal Color, Warm, Dry Head: Atraumatic, Normacephalic Eye(s): bilateral: Normal Inspection, PERRL, EOMI Nose: Normal Oral Mucosa: Moist Tongue: Other (superficial laceration to tongue) Neck: Normal ROM, Supple Chest: Symmetrical Cardiovascular: Rhythm Regular, No JVD Respiratory: Normal Breath Sounds Gastrointestinal/Abdominal: Normal Exam, Soft, No Tenderness Back: Normal Inspection Extremity: Normal ROM, No Deformity, No Swelling Neurological/Psych: Oriented x3, Normal Speech, Normal Cognition, Normal Cranial Nerves, Normal Motor, Normal Sensation ED Course And Treatment - Laboratory Results Result Diagrams: 09/11/17 02:03 09/11/17 02:03 O2 Sat by Pulse Oximetry: 96 (RA) Pulse Ox Interpretation: Normal Medical Decision Making Medical Decision Making: Impression: Seizures Plan: -- Labs -- UDS -- Urinalysis Time: 322 Labs reviewed and indicate sub-therapeutic depakote levels. Patient to be given Depakote 500mg PO and discharged home. Given instruction to follow up with neurologist in 2-3 days. Disposition - Disposition Referrals: [facility] [Outside] Disposition: HOME/ ROUTINE Disposition Time: : Condition: STABLE Instructions: Seizures, Adult (DC) Forms: [employer] (Mongolian) Print Language: SERBIAN - Clinical Impression Clinical Impression: Seizure - Scribe Statement The provider has reviewed the documentation as recorded by the Scribe (Rosemary Robbins) Provider Attestation: All medical record entries made by the Scribe were at my direction and personally dictated by me. I have reviewed the chart and agree that the record accurately reflects my personal performance of the history, physical exam, medical decision making, and the department course for this patient. I have also personally directed, reviewed, and agree with the discharge instructions and disposition.
[2017-09-11 02:30] LABS: ALBUMIN 3.9 g/dL (3.5-5.0); ALT/SGPT 13 U/L (21-72); AST/SGOT 21 U/L (17-59); BLOOD UREA NITROGEN 13 mg/dL (9-20); CALCIUM 8.8 mg/dl (8.6-10.4); GFR AFRICAN-AMERICAN > 60; GFR NON-AFRICAN AMERICAN > 60
[2017-09-11 02:41] LABS: BASO # 0.1 K/uL (0.0-0.2); BASO % 0.9 % (0.0-2.0); EOS # 0.3 K/uL (0.0-0.7); EOS % 2.1 % (0.0-4.0); HEMOGLOBIN 15.6 g/dL (12.0-18.0); LYMPH # 3.3 K/uL (1.0-4.3); LYMPH % 26.6 % (20.0-40.0); MEAN CELL VOLUME 93.6 fL (80.0-94.0); MEAN CORPUSCULAR HEMOGLOBIN 33.1 pg (27.0-31.0); MEAN CORPUSCULAR HGB CONC 35.3 g/dL (33.0-37.0); MEAN PLATELET VOLUME 9.1 fL (7.2-11.7); MONO % 7.9 % (0.0-10.0); NEUT # 7.8 K/uL (1.8-7.0); NEUT % 62.5 % (50.0-75.0); NRBC % 0.2 % (0.0-2.0); RBC 4.71 Mil/uL (4.40-5.90); RED CELL DISTRIBUTION WIDTH 13.5 % (11.5-14.5); WHITE BLOOD COUNT 12.4 K/uL (4.8-10.8)
[2017-09-11] MEDS ORDERED: Divalproex 500 mg DR Tab PO ONE (03:20)
[2017-09-11 03:45] VITALS: BP 110/70; PULSE 66; RESP 16; TEMP 98
== END 2017-09-11 03:49 | disposition home or self-care (01) ==
LOC: C.ER 01:05
DX: R56.9 Unspecified convulsions (principal); G47.30 Sleep apnea, unspecified; Z72.0 Tobacco use

== ENCOUNTER 2017-09-13 07:58 | Observation (INO) | payer OTHER ==
[2017-09-13 07:58] VITALS: BMI 25.8
--- NOTE | 2017-09-13 08:32 | C.PDOC ---
History Of Present Illness 52 year old male presents to the ED for evaluation of headache, new onset slurred speech, and right sided weakness which began at 0630 today. Patient has history of migraines and states, "Normally I get an aura and it goes away by itself but currently lasting longer than usual." He reports right facial numbness. Patient was seen on 09/11 after breakthrough seizure. He last took Depakote at 2030 yesterday. Patient is right handed. He states his speech has improved compared to prior but his headache is worsening and he has persistent facial numbness. CABRERA, NEW ONSET SLURRED SPEECH, R SIDED WEAKNESS SINCE 629. PS HO MIGRAINE, "NORMALLY I GET AN AURA AND IT GOES AWAY BY ITSELF BUT CURRENTLY LASTING LONGER THAN USUAL". +R FACE NUMBNESS. SEEN 09/11 S/P BREAKTHROUGH SEIZURE. LAST DEPAKOTE 2029 YEST. R HANDED. PS SPEECH IMPROVED COMPARED TO PRIOR BUT W WORSENING CABRERA, PERSIST FACIAL NUMBNESS. EXAM MILD DIST NONTOXIC HEENT EOMI NECK SUPPLE CV RRR NEURO SEE NIH; NO SZ ACTIVITY; AO3 REMAINDER NEG Time Seen by Provider: 09/13/17 08:17 Chief Complaint (Nursing): Weakness/Neurological Deficit History Per: Patient History/Exam Limitations: no limitations Onset/Duration Of Symptoms: Hrs Current Symptoms Are (Timing): Still Present Additional History Per: Patient Past Medical History Reviewed: Historical Data, Nursing Documentation, Vital Signs Vital Signs: Last Vital Signs Temp 97.7 F 09/13/17 15:10 Pulse 70 09/13/17 20:00 Resp 20 09/13/17 20:00 BP 100/57 L 09/13/17 20:00 Pulse Ox 99 09/13/17 22:33 - Medical History PMH: Anxiety, Migraine, Seizures, Sleep Apnea Surgical History: No Surg Hx - [facility] Procedures APPLICATION OF SPLINT (09/04/14) REPLAC M/S IMMOB DEV NEC (09/07/14) VENOUS PUNCTURE NEC (02/16/12) Family History: States: Stroke (Father), Hypertension (Mother) - Social History Hx Tobacco Use: Yes Hx Alcohol Use: No Hx Substance Use: No - Immunization History Hx Tetanus Toxoid Vaccination: Yes Hx Influenza Vaccination: Yes Hx Pneumococcal Vaccination: No Review Of Systems Neurological: Positive for: Weakness (right-sided ), Change in Speech (slurred) , Headache Physical Exam - Physical Exam Appears: Non-toxic, Other (in mild distress ) Skin: Normal Color, Warm, Dry Head: Atraumatic, Normacephalic Eye(s): bilateral: Normal Inspection Ear(s): Bilateral: Normal Nose: Normal, No Discharge Oral Mucosa: Moist Throat: Normal, No Erythema, No Exudate Neck: Supple Chest: Symmetrical, No Deformity, No Tenderness Cardiovascular: Rhythm Regular, No Murmur Respiratory: Normal Breath Sounds, No Rales, No Rhonchi, No Wheezing Extremity: Normal ROM, Capillary Refill (less than 2 seconds ) Neurological/Psych: Oriented x3, Other (see NIH. no seizure activity) ED Course And Treatment - Laboratory Results Result Diagrams: 09/13/17 08:44 09/13/17 08:44 ECG: Interpreted By Me ECG Rhythm: Sinus Rhythm ECG Interpretation: Normal Rate From EC O2 Sat by Pulse Oximetry: 99 (on RA) Pulse Ox Interpretation: Normal Progress Note: Bloodwork, CT Head, CTA Head, EKG, CXR ordered. Toradol IVP, Aspirin PO, Decadron IVP administered. NIHSS Stroke Scale - Date/Time Evaluation Performed Date Performed: 09/13/17 Time Performed: 08:32 When Was NIHSS Performed: Code Stroke - How Severe is the Stroke Level of Consciousness: 0=Alert LOC to Questions: 0=Both comments correct LOC to commands: 0=Obeys both correctly Best Gaze: 0=Normal Visual: 0=No visual loss Facial: 1=Minor asymmetry Motor Arm - Left: 0=No drift Motor Arm - Right: 0=No drift Motor Leg - Left: 0=No drift Motor Leg - Right: 0=No drift Limb Ataxia: 0=Absent Sensory: 1=Mild to moderate loss Best Language: 0=No aphasia Dysarthia: 1=Mild to moderate slurring Extinction & Inattention (Neglect): 0=Normal, no object Score: 3 NIHSS Stroke Scale 2 - Date/Time Evaluation Performed Date Performed: 09/13/17 Time Performed: 09:10 When Was NIHSS Performed: Code Stroke Re-evaluation - How Severe is the Stroke Level of Consciousness: 0=Alert LOC to Questions: 0=Both comments correct LOC to commands: 0=Obeys both correctly Best Gaze: 0=Normal Visual: 0=No visual loss Facial: 1=Minor asymmetry Motor Arm - Left: 0=No drift Motor Arm - Right: 0=No drift Motor Leg - Left: 0=No drift Motor Leg - Right: 0=No drift Limb Ataxia: 0=Absent Sensory: 1=Mild to moderate loss Best Language: 0=No aphasia Dysarthia: 0=Normal articulation Extinction & Inattention (Neglect): 0=Normal, no object Score: 2 Progress - Re-Evaluation Re-evaluation Note: 09/13/17 08:25 CODE STROKE ACTIVATED 09/13/17 09:08 D/W DR GOLDEN AWARE OF ER FINDINGS. MAGNESIUM, DECADRON, TORADOL, ASA. RECOMMENDS ADMISSION, WILL CONSULT 09/13/17 09:34 D/W DR DARNELL VASQUEZ RESPIRATORY THERAPY INSTRUCTOR AWARE OF ER FINDINGS WILL ADMIT - Data Reviewed Data Reviewed: Lab, Diagnostic imaging, EKG, Old records - Critical Care Citical Care: Excluding Proc Time Critical Care Time: 90 minutes - Continuity of Care Discussed patient case with:: Patient, On-call PMD-pt unassigned Discussed pt. case with financial analysis consultant/specialty: Neurology rTPA Inclusion/Exclusion - Refusal of Treatment Patient Refused Treatment: No - Inclusion Criteria for Altepase Patient is 18 years or Older: Yes The Clinical Diagnosis of Ischemic Stroke That is Causing a Potentially Disabling Neurological Deficit: Yes Time of Onset is Well Established to be Less Than 270 Minute Before Treatment Would Begin: No Risk/Benefit Discussed With Patient/Family Member Present: Yes - Exclusion Criteria for Altepase Uncontrolled Hypertension at Time of Treatment (Systolic BP above 185 or Diastolic BP above 110 mmHg): No Active Internal Bleeding: No Known Bleeding Diathesis Including but Not Limited to: Platelets Below 100,000/ mm,PTT Above 40 sec After Heparin Use, Current Use of Oral Anitcoagulant With INR Greater Than 1.7 or PT Greater Than 15 secs: No Evidence of an Intracranial Hemorrhage: No Evidence of Major Acute Infarct With Signs Greater Than 1/3 MCA Territory: No Suspicion of Subarachnoid Hemorrhage on Pretreatment Evaluation Even if CT Head Negative For Hemorrhage: No - Warning to TPA With Conditions Following Conditions Weighed Against Anticipated Benefit: No Condition: Stroke Serevity Too Mild, Care Team Unable to Determine Eligibilty, Seizure at Onset of Stroke (POSSIBLE ) Disposition Counseled Patient/Family Regarding: Studies Performed, Diagnosis, Need For Followup - Disposition Disposition: HOSPITALIZED Disposition Time: 09:35 Condition: SERIOUS - POA Present On Arrival: None - Clinical Impression Clinical Impression: Migraine, TIA (transient ischemic attack) - Scribe Statement The provider has reviewed the documentation as recorded by the Scribe (Lacey العلي) Provider Attestation: All medical record entries made by the Scribe were at my direction and personally dictated by me. I have reviewed the chart and agree that the record accurately reflects my personal performance of the history, physical exam, medical decision making, and the department course for this patient. I have also personally directed, reviewed, and agree with the discharge instructions and disposition. Decision To Admit - Pt Status Changed To: Hospital Disposition Of: Observation - . Bed Request Type: Telemetry Admitting Physician: Mary Stoner Patient Diagnosis: Migraine, TIA (transient ischemic attack)
[2017-09-13] MEDS ORDERED: Iodixanol 320 mg/ml 150 ml Bottle IV ONE (08:36)
--- NOTE | 2017-09-13 08:43 | CT ---
PROCEDURE: CT HEAD WITHOUT CONTRAST. HISTORY: Code Stroke COMPARISON: 03/12/2017. TECHNIQUE: Axial computed tomography images were obtained through the head/brain without intravenous contrast. Radiation dose: Total exam DLP = 886.80 mGy-cm. This CT exam was performed using one or more of the following dose reduction techniques: Automated exposure control, adjustment of the mA and/or kV according to patient size, and/or use of iterative reconstruction technique. FINDINGS: HEMORRHAGE: No intracranial hemorrhage. BRAIN: Nunez-white matter differentiation is preserved. There is no mass, mass effect or abnormal extra-axial fluid collection. There is no territorial infarction. VENTRICLES: The ventricles are normal in size, shape and configuration. CALVARIUM: The skull base and calvarium are normal. PARANASAL SINUSES: Predominantly clear. MASTOID AIR CELLS: Predominantly clear. OTHER FINDINGS: None. IMPRESSION: No acute intracranial abnormality. If there is a persistent focal neurologic deficit and an ongoing clinical concern for acute infarction, an MRI of the brain without intravenous contrast would be a more sensitive modality for evaluation of hyperacute/acute ischemic infarction. Important findings were discussed with Dr. Sylvia Slater in the ER on 09/13/2017 at 8:40 a.m.
[2017-09-13 08:49] LABS: BASO # 0.1 K/uL (0.0-0.2); BASO % 0.7 % (0.0-2.0); EOS # 0.1 K/uL (0.0-0.7); EOS % 1.2 % (0.0-4.0); HEMOGLOBIN 15.6 g/dL (12.0-18.0); LYMPH # 2.3 K/uL (1.0-4.3); LYMPH % 19.3 % (20.0-40.0); MEAN CELL VOLUME 92.6 fL (80.0-94.0); MEAN CORPUSCULAR HEMOGLOBIN 32.1 pg (27.0-31.0); MEAN CORPUSCULAR HGB CONC 34.7 g/dL (33.0-37.0); MEAN PLATELET VOLUME 9.2 fL (7.2-11.7); MONO # 0.7 K/uL (0.0-0.8); MONO % 5.8 % (0.0-10.0); NEUT # 8.8 K/uL (1.8-7.0); NRBC % 0.1 % (0.0-2.0); RBC 4.87 Mil/uL (4.40-5.90); RED CELL DISTRIBUTION WIDTH 13.1 % (11.5-14.5); WHITE BLOOD COUNT 12.1 K/uL (4.8-10.8)
--- NOTE | 2017-09-13 09:00 | CT ---
PROCEDURE: CTA HEAD AND NECK WITH CONTRAST HISTORY: CABRERA SLURRED SPEECH COMPARISON: None available. TECHNIQUE: Initial noncontrast head CT was performed. Subsequently, CT angiogram of the head and neck were performed after the intravenous administration of 80 mL of Omnipaque 350. Contiguous 1.5mm thick images were obtained in the axial plane of the neck. 2-D coronal and sagittal MPR images were obtained. Imaging postprocessing was performed with 3-D images also obtained. A delayed contrast head CT was also obtained. This CT exam was performed using one or more of the following dose reduction techniques: Automated exposure control, adjustment of the mA and/or kV according to patient size, and/or use of iterative reconstruction technique. Contrast dose: 100 mL Visipaque Radiation dose: Total exam DLP = 603.84 mGy-cm. FINDINGS: HEAD: Right: The intracranial internal carotid artery, and anterior and middle cerebral arteries are widely patent. Left: The intracranial internal carotid artery, and anterior and middle cerebral arteries are widely patent. Posterior circulation: The visualized intracranial vertebral arteries, basilar artery and posterior cerebral arteries are widely patent. Ther is no endoluminal filling defect to suggest thrombus. There is no intracranial saccular aneurysm. NECK: There is a three vessel aortic arch. There is no stenosis at the origins of the great vessels at the level of the aortic arch. Right Carotid: On the right, the common carotid, internal carotid and external carotid arteries are widely patent. There is no hemodynamically significant stenosis in the internal carotid artery by NASCET CT criteria. Left Carotid: On the left, the common carotid, internal carotid and external carotid arteries are widely patent. There is no hemodynamically significant stenosis in the internal carotid artery by anus CT criteria. The vertebral arteries are widely patent. The left vertebral artery is hypoplastic, an anatomic variant. The visualized soft tissues of the neck are normal. The visualized brain and cervical spine are within normal limits. There is paraseptal emphysema in the visualized lungs. IMPRESSION: 1. No evidence of intraluminal thrombus, definite significant stenosis or occlusion. 2. No evidence of hemodynamically significant stenosis by NASCET criteria. 3. Patent bilateral vertebral arteries. The left vertebral artery is hypoplastic, an anatomic variant.
[2017-09-13] MEDS ORDERED: Magnesium Sulfate 2 GM in Dextrose 5% In Water 250 ML IVPB ONE (09:05)
[2017-09-13 09:08] LABS: PROTHROMBIN TIME 11.5 SECONDS (9.7-12.2)
[2017-09-13 09:16] LABS: ALB/GLOB RATIO 1.1 (1.0-2.1); ALBUMIN 4.1 g/dL (3.5-5.0); ALT/SGPT 6 U/L (21-72); AST/SGOT 27 U/L (17-59); BLOOD UREA NITROGEN 13 mg/dL (9-20); GFR AFRICAN-AMERICAN > 60; GFR NON-AFRICAN AMERICAN > 60; HDL CHOLESTEROL 26 mg/dL (30-70)
[2017-09-13] MEDS ORDERED: Magnesium Sulfate 1 gm in D5W 2 GM/200 ML BAG IVPB ONE (09:18)
[2017-09-13] MEDS ORDERED: Sodium Chloride 0.9% 1,000 ML ONE (09:18)
[2017-09-13] MEDS: Sodium Chloride 0.9% 1,000 ML IV SCH ×3 (09:19→20:00)
--- NOTE | 2017-09-13 09:22 | RAD ---
HISTORY: Code Stroke COMPARISON: 07/05/2017 FINDINGS: LUNGS: No active pulmonary disease. PLEURA: No significant pleural effusion identified, no pneumothorax apparent. CARDIOVASCULAR: Normal. OSSEOUS STRUCTURES: No significant abnormalities. VISUALIZED UPPER ABDOMEN: Normal. OTHER FINDINGS: None. IMPRESSION: No active disease.
[2017-09-13 09:27] LABS: LDL CHOLESTEROL 99 mg/dL (0-129)
[2017-09-13] MEDS ORDERED: Oxycodone/Acetaminophen 5/325 mg Tab PO ONE (12:59)
--- NOTE | 2017-09-13 13:08 | CP.PCM.PN ---
Subjective - Date & Time of Evaluation Date of Evaluation: 09/13/17 Time of Evaluation: 13:05 - Subjective Subjective: PGY2 progress note for Dr. Stoner 52 year old male with past medical history of migraines with aura, seizure disorder, recently diagnosed GINA and tobacco abuse is admitted for right sided numbness and tingling. Pt was brought to hospital for right upper extremity and right facial numbness and tingling that began after pt woke up this morning at 6:30 am. Patient states that he though this was due to an aura preceding his migraine but symptoms did not improve which prompted him to come to ED. In the ED, CT head and CTA were normal. Pt was given decadron, magnesium, toradol in the ED. Currently, pt complains of severe migraine CABRERA located in the right temporal region pressure like in nature. HE accompanied with photophobia and nausea. Patient also has history of seizures. He states that he has tonic clonic seizures every night that are witnessed by the . Occasionally, with the seizures pt has tongue biting and postictal state. Patient has been on Depakote 2500 qd that he states he is compliant with. Currently, pt states numbness and tinling have improved. Denies having any weakness of extremities. Complains of severe headache. Denies having any N/V, abd pain, CP, SOB, F/C. PMHx: stated above Sx: left rotator cuff Social: 1.5 ppd x 300 years. No ETOH or drug use Meds: see [facility] Neuro: Dr. Hernandes Objective - Vital Signs/Intake and Output Vital Signs (last 24 hours): Temp Pulse Resp BP Pulse Ox 97.7 F 63 17 103/59 L 95 09/13/17 10:26 09/13/17 10:26 09/13/17 10:26 09/13/17 10:26 09/13/17 11:47 - Medications Medications: Current Medications Sodium Chloride (Sodium Chloride 0.9%) 1,000 mls @ 100 mls/hr IV .Q10H [facility] Last Admin: 09/13/17 09:19 Dose: 100 mls/hr - Labs Labs: 09/13/17 08:44 09/13/17 08:44 PT 11.5 SECONDS (9.7-12.2) 09/13/17 08:44 INR 1.0 09/13/17 08:44 APTT 36 SECONDS (21-34) H 09/13/17 08:44 - Constitutional Appears: Non-toxic, No Acute Distress - Head Exam Head Exam: ATRAUMATIC - ENT Exam ENT Exam: Mucous Membranes Moist - Respiratory Exam Respiratory Exam: Clear to Ausculation Bilateral. absent: Accessory Muscle Use , Rales, Rhonchi, Wheezes, Respiratory Distress - Cardiovascular Exam Cardiovascular Exam: REGULAR RHYTHM, +S1, +S2. absent: Diastolic murmur, Gallop , Rubs, Murmur - GI/Abdominal Exam GI & Abdominal Exam: Soft, Normal Bowel Sounds. absent: Distended, Firm, Guarding, Rigid, Tenderness, Organomegaly - Extremities Exam Extremities Exam: absent: Pedal Edema, Tenderness - Neurological Exam Neurological Exam: Alert, Awake, CN II-XII Intact, Motor Sensory Deficit, Oriented x3, Reflexes Normal Neuro motor strength exam: Left Upper Extremity: 5, Right Upper Extremity: 5, Left Lower Extremity: 5, Right Lower Extremity: 5 - Psychiatric Exam Psychiatric exam: Normal Affect, Normal Mood - Skin Skin Exam: Dry, Intact, Normal Color, Warm Assessment and Plan - Assessment and Plan (Free Text) Assessment: Complex migraine with aura - CT head and CTA were normal - Pt offered MRI without contrast but he refused stating he is claustrophobic. Per neuro, pt can have this test done outpt (script placed in pts chart) - Pt received decadron, magnesium and toradol in the ED - Neuro, Dr. Ferreira is consulted. - Patient was offered ketamine for headache. Patient refused at this time. - Will give patient Reglan IVP 10 mg once, Toradol 30 mg IVP, NS 100 cc Seizure disorder - Valproic acid level was low - Will give pt loading dose of valproic acid 1 gm IV - Will continue home dose of Depakote 500 mg po Q12 + Depakote 25mg po HS. Per neuro, pt to be discharged with this dose and follow up with neurologist outpt. COPD - Pt counselled on tobacco abuse - Nicotin patch Hypertriglyceridemia - Pt started on Crestor 5 mg po qd Prophylaxis - Lovenox - SCDs All orders and managements per Dr. Stoner
[2017-09-13] MEDS ORDERED: Valproate 1,000 MG in Sodium Chloride 0.9% 100 ML IVPB ONE (13:30)
--- NOTE | 2017-09-13 14:02 | CP.PCM.CON ---
History of Present Illness - History of Present Illness History of Present Illness: Mr. Lim is a 52-year-old man with a past medical history of sleep apnea, HTN, epilepsy (on depakote) and migraine headaches who presented to the ED complaining of right face/arm numbness and severe headache. His Depakote level was subtherapeutic. He was treated with depakote IV, magnesium sulfate IV and decadron IV as well as toradol. His headache improved somewhat, but he continues to complain of a 9/10 headache. The numbness is improved completely. He states that the headache is right sided, pressure-like and associated with nausea, photophobia, but no vomiting. CT and CTA of the head/neck were normal. Review of Systems - Review of Systems All systems: reviewed and no additional remarkable complaints except Past Patient History - Infectious Disease Hx of Infectious Diseases: None - Past Medical History & Family History Past Medical History?: Yes - Past Social History Smoking Status: Heavy Smoker > 10 Cigarettes Daily - CARDIAC Hx Cardiac Disorders: Yes Other/Comment: wpw - PULMONARY Hx Sleep Apnea: Yes - NEUROLOGICAL Hx Migraine: Yes Hx Seizures: Yes - HEENT Hx HEENT Problems: No - RENAL Hx Chronic Kidney Disease: No - ENDOCRINE/METABOLIC Hx Endocrine Disorders: No - HEMATOLOGICAL/ONCOLOGICAL Hx Blood Disorders: No Other/Comment: WP - INTEGUMENTARY Hx Dermatological Problems: No - MUSCULOSKELETAL/RHEUMATOLOGICAL Hx Musculoskeletal Disorders: No - GASTROINTESTINAL Hx Gastrointestinal Disorders: No - GENITOURINARY/GYNECOLOGICAL Hx Genitourinary Disorders: No - PSYCHIATRIC Hx Anxiety: Yes Hx Substance Use: No - SURGICAL HISTORY Hx Surgeries: Yes Hx Orthopedic Surgery: Yes (LEFT SHOULDER 2011) Other/Comment: Coronary Ablation for WPW 1994 - ANESTHESIA Hx Anesthesia: Yes Hx Anesthesia Reactions: No Meds Allergies/Adverse Reactions: Allergies Allergy/AdvReac Type Severity Reaction Status Date / Time Penicillins Allergy ANAPHYLAXIS Verified 09/13/17 08:21 - Medications Medications: Current Medications Sodium Chloride (Sodium Chloride 0.9%) 1,000 mls @ 100 mls/hr IV .Q10H [facility] Last Admin: 09/13/17 09:19 Dose: 100 mls/hr Valproate Sodium 1,000 mg/ (Sodium Chloride) 110 mls @ 100 mls/hr IVPB ONCE ONE Stop: 09/13/17 14:35 Physical Exam - Neurological Exam Neurological exam: Alert, CN II-XII Intact, Normal Gait, Oriented x3, Reflexes Normal Results - Vital Signs Recent Vital Signs: Last Vital Signs Temp 97.7 F 09/13/17 10:26 Pulse 63 09/13/17 10:26 Resp 17 09/13/17 10:26 BP 103/59 L 09/13/17 10:26 Pulse Ox 95 09/13/17 11:47 - Labs Result Diagrams: 09/13/17 08:44 09/13/17 08:44 Labs: Laboratory Results - last 24 hr 09/13/17 09/13/17 09/13/17 08:14 08:44 08:44 WBC 12.1 H RBC 4.87 Hgb 15.6 Hct 45.1 MCV 92.6 MCH 32.1 H MCHC 34.7 RDW 13.1 Plt Count 252 MPV 9.2 Neut % (Auto) 73.0 Lymph % (Auto) 19.3 L Cassia % (Auto) 5.8 Eos % (Auto) 1.2 Baso % (Auto) 0.7 Neut # (Auto) 8.8 H Lymph # (Auto) 2.3 Cassia # (Auto) 0.7 Eos # (Auto) 0.1 Baso # (Auto) 0.1 PT 11.5 INR 1.0 APTT 36 H Sodium Potassium Chloride Carbon Dioxide Anion Gap BUN Creatinine Est GFR ( Amer) Est GFR (Non-Af Amer) POC Glucose (mg/dL) 133 H Random Glucose Hemoglobin A1c Calcium Magnesium Total Bilirubin AST ALT Alkaline Phosphatase Troponin I Total Protein Albumin Globulin Albumin/Globulin Ratio Triglycerides Cholesterol LDL Cholesterol Direct HDL Cholesterol Valproic Acid Blood Type Antibody Screen 09/13/17 09/13/17 09/13/17 08:44 08:44 08:44 WBC RBC Hgb Hct MCV MCH MCHC RDW Plt Count MPV Neut % (Auto) Lymph % (Auto) Cassia % (Auto) Eos % (Auto) Baso % (Auto) Neut # (Auto) Lymph # (Auto) Cassia # (Auto) Eos # (Auto) Baso # (Auto) PT INR APTT Sodium 140 Potassium 3.9 Chloride 98 Carbon Dioxide 28 Anion Gap 17 BUN 13 Creatinine 1.1 Est GFR ( Amer) > 60 Est GFR (Non-Af Amer) > 60 POC Glucose (mg/dL) Random Glucose 115 H Hemoglobin A1c 5.6 Calcium 9.0 Magnesium 1.9 Total Bilirubin 0.5 AST 27 ALT 6 L D Alkaline Phosphatase 102 Troponin I < 0.0120 Total Protein 7.8 Albumin 4.1 Globulin 3.6 Albumin/Globulin Ratio 1.1 Triglycerides 855 H Cholesterol 252 H LDL Cholesterol Direct 99 HDL Cholesterol 26 L Valproic Acid Blood Type A NEGATIVE Antibody Screen Negative 09/13/17 08:46 WBC RBC Hgb Hct MCV MCH MCHC RDW Plt Count MPV Neut % (Auto) Lymph % (Auto) Cassia % (Auto) Eos % (Auto) Baso % (Auto) Neut # (Auto) Lymph # (Auto) Cassia # (Auto) Eos # (Auto) Baso # (Auto) PT INR APTT Sodium Potassium Chloride Carbon Dioxide Anion Gap BUN Creatinine Est GFR ( Amer) Est GFR (Non-Af Amer) POC Glucose (mg/dL) Random Glucose Hemoglobin A1c Calcium Magnesium Total Bilirubin AST ALT Alkaline Phosphatase Troponin I Total Protein Albumin Globulin Albumin/Globulin Ratio Triglycerides Cholesterol LDL Cholesterol Direct HDL Cholesterol Valproic Acid 40.0 L Blood Type Antibody Screen Assessment & Plan (1) Migraine Assessment and Plan: Likely complicated migraine. Will give another gram of depakote to get him therapeutic and continue home dose. Will give toradol 30 mg IV Q4, for two doses, as well as reglan 10 mg IV, and follow him for effect. I offered him ketamine, but he was not interested at this time. He refused MRI due to claustrophobia. We will re-assess. Thank you. Status: Acute Priority: High
[2017-09-13 15:57] VITALS: RESP 20
[2017-09-13] MEDS: Divalproex 500 mg DR Tab PO SCH (18:22)
[2017-09-13] MEDS ORDERED: Divalproex 250 mg DR Tab PO SCH (22:00)
[2017-09-14 01:08] VITALS: O2SAT 96
[2017-09-14] MEDS: Sodium Chloride 0.9% 1,000 ML IV SCH ×2 (05:30→06:16)
--- NOTE | 2017-09-14 07:22 | CP.PCM.PN ---
Subjective - Date & Time of Evaluation Date of Evaluation: 09/14/17 Time of Evaluation: 07:20 - Subjective Subjective: PGY2 progress note for Dr. Stoner Pt seen and examined at bedside. Nursing reports no acute events overnight. Patient denies headache, dizziness, lightheadedness, nausea, or vomiting. He is anxious to go home and will follow up with Dr. Hernandes. Objective - Vital Signs/Intake and Output Vital Signs (last 24 hours): Temp Pulse Resp BP Pulse Ox 98 F 66 20 105/62 96 09/13/17 23:55 09/13/17 23:55 09/13/17 23:55 09/13/17 23:55 09/13/17 23:55 - Medications Medications: Current Medications Divalproex Sodium (Depakote Dr) 1,000 mg PO BID [facility] Last Admin: 09/13/17 18:22 Dose: 1,000 mg Divalproex Sodium (Depakote Dr) 250 mg PO HS [facility] Last Admin: 09/13/17 21:46 Dose: 250 mg Enoxaparin Sodium (Lovenox) 40 mg SC DAILY [facility] Sodium Chloride (Sodium Chloride 0.9%) 1,000 mls @ 100 mls/hr IV .Q10H [facility] Last Admin: 09/14/17 06:16 Dose: 100 mls/hr Nicotine (Nicoderm Cq) 1 patch TD DAILY [facility] Last Admin: 09/13/17 18:53 Dose: 1 patch Rosuvastatin Calcium (Crestor) 5 mg PO HS [facility] Last Admin: 09/13/17 21:46 Dose: 5 mg - Labs Labs: 09/13/17 08:44 09/13/17 08:44 PT 11.5 SECONDS (9.7-12.2) 09/13/17 08:44 INR 1.0 09/13/17 08:44 APTT 36 SECONDS (21-34) H 09/13/17 08:44 - Additional Findings Additional findings: - Constitutional Appears: Non-toxic, No Acute Distress - Head Exam Head Exam: ATRAUMATIC - ENT Exam ENT Exam: Mucous Membranes Moist - Respiratory Exam Respiratory Exam: Clear to Ausculation Bilateral. absent: Accessory Muscle Use , Rales, Rhonchi, Wheezes, Respiratory Distress - Cardiovascular Exam Cardiovascular Exam: REGULAR RHYTHM, +S1, +S2. absent: Diastolic murmur, Gallop , Rubs, Murmur - GI/Abdominal Exam GI & Abdominal Exam: Soft, Normal Bowel Sounds. absent: Distended, Firm, Guarding, Rigid, Tenderness, Organomegaly - Extremities Exam Extremities Exam: absent: Pedal Edema, Tenderness - Neurological Exam Neurological Exam: Alert, Awake, CN II-XII Intact, Motor Sensory Deficit, Oriented x3, Reflexes Normal Neuro motor strength exam: Left Upper Extremity: 5, Right Upper Extremity: 5, Left Lower Extremity: 5, Right Lower Extremity: 5 - Psychiatric Exam Psychiatric exam: Normal Affect, Normal Mood - Skin Skin Exam: Dry, Intact, Normal Color, Warm Assessment and Plan - Assessment and Plan (Free Text) Plan: Complex migraine with aura - CT head and CTA were normal - Pt offered MRI without contrast but he refused stating he is claustrophobic. Per neuro, pt can have this test done outpt (script placed in pts chart) - Pt received decadron, magnesium and toradol in the ED - Neuro, Dr. Ferreira is consulted. - Patient was offered ketamine for headache. Patient refused at this time. - Will give patient Reglan IVP 10 mg once, Toradol 30 mg IVP, NS 100 cc Seizure disorder - Valproic acid level was low - Will give pt loading dose of valproic acid 1 gm IV - Will continue home dose of Depakote 500 mg po Q12 + Depakote 25mg po HS. Per neuro, pt to be discharged with this dose and follow up with neurologist outpt. COPD - Pt counselled on tobacco abuse - Nicotine patch Hypertriglyceridemia - Pt started on Crestor 5 mg po qd Prophylaxis - Lovenox - SCDs Disposition: Pt stable for discharge home. Will f/u with Dr. Hernandes as outpatient. Given scripts for ASA, Nicotine patch, and statin
--- NOTE | 2017-09-14 07:50 | CP.PCM.PN ---
Subjective - Date & Time of Evaluation Date of Evaluation: 09/14/17 Time of Evaluation: 07:47 - Subjective Subjective: Mr. Lim was seen and examined at the bedside. He is alert, oriented in all spheres. He denies any headache, dizziness, lightheadedness, nausea, or vomiting. He further claims of being at his baseline. He is able to follow all commands. He is being seen by Dr. Hernandes for his migraine. There was no untoward events overnight. Objective - Vital Signs/Intake and Output Vital Signs (last 24 hours): Temp Pulse Resp BP Pulse Ox 98 F 66 20 105/62 96 09/13/17 23:55 09/13/17 23:55 09/13/17 23:55 09/13/17 23:55 09/13/17 23:55 - Medications Medications: Current Medications Divalproex Sodium (Depakote Dr) 1,000 mg PO BID [facility] Last Admin: 09/13/17 18:22 Dose: 1,000 mg Divalproex Sodium (Depakote Dr) 250 mg PO [facility] Last Admin: 09/13/17 21:46 Dose: 250 mg Enoxaparin Sodium (Lovenox) 40 mg SC DAILY [facility] Sodium Chloride (Sodium Chloride 0.9%) 1,000 mls @ 100 mls/hr IV .Q10H [facility] Last Admin: 09/14/17 06:16 Dose: 100 mls/hr Nicotine (Nicoderm Cq) 1 patch TD DAILY [facility] Last Admin: 09/13/17 18:53 Dose: 1 patch Rosuvastatin Calcium (Crestor) 5 mg PO [facility] Last Admin: 09/13/17 21:46 Dose: 5 mg - Labs Labs: 09/13/17 08:44 09/13/17 08:44 PT 11.5 SECONDS (9.7-12.2) 09/13/17 08:44 INR 1.0 09/13/17 08:44 APTT 36 SECONDS (21-34) H 09/13/17 08:44 - Constitutional Appears: No Acute Distress - Head Exam Head Exam: NORMAL INSPECTION - Eye Exam Eye Exam: EOMI, Normal appearance, PERRL - ENT Exam ENT Exam: Mucous Membranes Moist, Normal Exam - Neurological Exam Neurological Exam: Alert, Awake, CN II-XII Intact, Normal Gait, Oriented x3 Neuro motor strength exam: Left Upper Extremity: 5, Right Upper Extremity: 5, Left Lower Extremity: 5, Right Lower Extremity: 5 Additional comments: He is alert, oriented in all spheres. Assessment and Plan (1) Migraine Assessment & Plan: Case discussed with Dr. Ferreira, continue all current medical regimen. September follow up with Dr. Hernandes ( pt. own's neurologis). This is a migraine not a TIA. From neurology perpective september d/c to home pending to primary team evaluation. Status: Acute
[2017-09-14 08:35] LABS: BASO % 0.3 % (0.0-2.0); EOS % 0.2 % (0.0-4.0); HEMOGLOBIN 13.7 g/dL (12.0-18.0); LYMPH # 2.5 K/uL (1.0-4.3); LYMPH % 15.7 % (20.0-40.0); MEAN CELL VOLUME 91.8 fL (80.0-94.0); MEAN CORPUSCULAR HGB CONC 35.9 g/dL (33.0-37.0); MEAN PLATELET VOLUME 9.4 fL (7.2-11.7); MONO # 1.2 K/uL (0.0-0.8); MONO % 7.7 % (0.0-10.0); NEUT # 11.9 K/uL (1.8-7.0); NEUT % 76.1 % (50.0-75.0); NRBC % 0.1 % (0.0-2.0); RBC 4.16 Mil/uL (4.40-5.90); RED CELL DISTRIBUTION WIDTH 13.2 % (11.5-14.5); WHITE BLOOD COUNT 15.7 K/uL (4.8-10.8)
[2017-09-14 08:50] LABS: ALB/GLOB RATIO 1.2 (1.0-2.1); ALBUMIN 3.7 g/dL (3.5-5.0); ALT/SGPT < 6 U/L (21-72); AST/SGOT 17 U/L (17-59); BLOOD UREA NITROGEN 13 mg/dL (9-20); CALCIUM 8.7 mg/dl (8.6-10.4); GFR AFRICAN-AMERICAN > 60; GFR NON-AFRICAN AMERICAN > 60
[2017-09-14 08:53] VITALS: BP 108/66; PULSE 56; TEMP 97.5
[2017-09-14] MEDS ORDERED: Enoxaparin 40 mg Syringe SC SCH (10:00)
[2017-09-14] MEDS: Divalproex 500 mg DR Tab PO SCH (10:29)
[2017-09-15] MEDS ORDERED: Pneumococcal 23-Valent Vaccine IM ONE (10:00)
--- NOTE | 2017-09-15 13:28 | CARD ---
APPROVED REPORT EKG Measurement Heart [id number] CT 124P60 [id number] <Conclusion> Normal sinus rhythm Nonspecific T wave abnormality Abnormal ECG
== END 2017-09-14 11:50 | disposition home or self-care (01) ==
LOC: C.ER 07:58 → C.6T 09:35
PROVIDERS: ADMIT Internal Medicine Pulmonary Disease; ATTEND Internal Medicine Pulmonary Disease
DX: G43.109 Migraine with aura, not intractable, without status migrainosus (principal); G40.909 Epilepsy, unspecified, not intractable, without status epilepticus; G47.33 Obstructive sleep apnea (adult) (pediatric); I10 Essential (primary) hypertension; J44.9 Chronic obstructive pulmonary disease, unspecified; F40.240 Claustrophobia; Z82.3 Family history of stroke; F17.210 Nicotine dependence, cigarettes, uncomplicated
CPT/HCPCS: 36415; 70450; 70496; 70498; 71045; 80053; 80061; 80164; 82948; 83036; 83735; 84484; 85025; 85610; 85730; 86850; 86900; 96365; 96374; 99285; G0378; J1100; J1885; J2405; J3475; J7040; J7060; Q9967

== ENCOUNTER 2018-02-26 20:50 | Emergency (ER) | payer OTHER ==
[2018-02-26 20:50] VITALS: BMI 25.8
[2018-02-26 21:00] VITALS: BP 126/87; PULSE 62; RESP 14; TEMP 97.4; O2SAT 97
[2018-02-26] MEDS ORDERED: Bacitracin 500 Units/gm Oint Foilpak UD ONE (21:51)
--- NOTE | 2018-02-26 22:33 | C.PDOC ---
History Of Present Illness 52 yo male come in for evaluation of left elbow injury sustained few hours [employer]. As per pt, slipped and fell down under the truck, hit the metal step with Left elbow". Pt reports, pain is localized over the left elbow, worse with left arm movement. Otherwise, pt denies head injury, LOC, syncope, headache, neck pain, CP, abd. pain, N/V, denies obvious deformity, weakness, sensory or vascular deficits to left arm. Ambulate to Ed for evaluation, not in any apparent distress. Time Seen by Provider: 02/26/18 21:15 Chief Complaint (Nursing): Upper Extremity Problem/Injury History Per: Patient Past Medical History Reviewed: Historical Data, Nursing Documentation, Vital Signs Vital Signs: Last Vital Signs Temp 97.4 F L 02/26/18 20:57 Pulse 62 02/26/18 20:57 Resp 14 02/26/18 20:57 BP 126/87 02/26/18 20:57 Pulse Ox 97 02/26/18 20:57 - Medical History PMH: Anxiety, Migraine, Seizures, Sleep Apnea Denies: Chronic Kidney Disease - [facility] Procedures APPLICATION OF SPLINT (09/04/14) REPLAC M/S IMMOB DEV NEC (09/07/14) VENOUS PUNCTURE NEC (02/16/12) Family History: States: Stroke (Father), Hypertension (Mother) - Social History Hx Tobacco Use: Yes Hx Alcohol Use: No Hx Substance Use: No - Immunization History Hx Tetanus Toxoid Vaccination: Yes (<5yrs ago) Hx Influenza Vaccination: Yes Hx Pneumococcal Vaccination: No Review Of Systems Except As Marked, All Systems Reviewed And Found Negative. Constitutional: Negative for: Fever Eyes: Negative for: Vision Change ENT: Negative for: Ear Discharge, Nose Discharge Cardiovascular: Negative for: Chest Pain Gastrointestinal: Negative for: Nausea, Vomiting Genitourinary: Negative for: Incontinence Musculoskeletal: Positive for: Other (Left elbow pain). Negative for: Neck Pain, Back Pain Skin: Positive for: Bruising Neurological: Negative for: Weakness, Numbness, Altered Mental Status, Headache, Dizziness Physical Exam - Physical Exam Appears: Well, Non-toxic, No Acute Distress Skin: Normal Color, Warm, Other (superficial abrasion to Left olecranon) Head: Atraumatic, Normacephalic Eye(s): bilateral: PERRL Neck: Normal ROM, No Midline Cervical Tenderness, No Paracervical Tenderness, No Step Off Deformity, Supple Extremity: Normal ROM (mild discomfor to Left elbow extension due to pain. No neurovascular deficits.), Tenderness (over Left olecranon of left elbow), Capillary Refill (less than 2sec to Left hand), No Deformity, No Swelling Neurological/Psych: Oriented x3, Normal Speech, Normal Motor, Normal Sensation, Normal Reflexes ED Course And Treatment O2 Sat by Pulse Oximetry: 97 Pulse Ox Interpretation: Normal - Other Rad Left elbow X-Ray: Interpreted by Me, Viewed By Me Interpretation: (+)ant. fat pad sign Progress Note: On re-eval, pt is afebrile, hemodynamicaly stable. NOn-toxic. Ambulatory in Ed with stable gait. Head: AT/NC. Neck: Supple, (-) midline tenderness. Right UE: mil dtenderness over olecranon of left elbow. FAROM, no neurovascular defiicts. Imaging review (-) acute fx. Shan wrap applied to left elbow, sling applied to left arm. Pt advised and ref. to f/u with Ortho in 2-3 dyas for re-eval. return to ED if any worsening or new changes. Disposition Counseled Patient/Family Regarding: Studies Performed, Diagnosis, Need For Followup, Rx Given - Disposition Referrals: Swati Tomlinson MD [Staff Provider] - Disposition: HOME/ ROUTINE Disposition Time: 21:55 Condition: STABLE Additional Instructions: Shan wrap to Left elbow for 1-2 weeks Sling for 1 week take pain medication as prescribed Follow up with Orthopedist in 2-3 days for re-evaluation. return to ED if any worsening or new changes. Prescriptions: traMADol [Ultram] 50 mg PO TID #7 tab Instructions: Elbow Fracture (DC) Forms: [employer] (Sami), Work Excuse - Clinical Impression Clinical Impression: Elbow fracture
--- NOTE | 2018-02-27 08:45 | RAD ---
Date of service: 02/26/2018 PROCEDURE: Radiographs of the left elbow. HISTORY: injury COMPARISON: No prior. FINDINGS: BONES: No fracture appreciated. Tiny anterior ulnar coronoid spurring present. Posterior olecranon cortical osseous hypertrophy. JOINTS: Trace osteoarthrosis SOFT TISSUES: Altered density a posterior distal forearm-elbow bordering soft tissues-correlate clinically with the injury site. JOINT EFFUSION: The anterior fat pad is very slightly visualized does not appear particularly lifted no large effusion here suggested. A trace effusion not excluded. No radial head fracture however is visualized. The anterior fat pad may be top-normal variant. OTHER FINDINGS: None IMPRESSION: The flat appearing anterior fat pad appearance no large effusion here appreciated. A trace effusion not excluded. Top normal variant appearance to the anterior fat pad is a consideration. No radial head fracture appreciated. Clinical follow-up recommended Minimal arthrosis Altered density a posterior distal forearm-elbow bordering soft tissues-correlate clinically with the injury site.
== END 2018-02-26 23:07 | disposition home or self-care (01) ==
LOC: C.ER 20:50
DX: S42.402A Unspecified fracture of lower end of left humerus, initial encounter for closed fracture (principal); W01.198A Fall on same level from slipping, tripping and stumbling with subsequent striking against other object, initial encounter; Y92.9 Unspecified place or not applicable

== ENCOUNTER 2018-04-25 10:28 | Emergency (ER) | payer OTHER ==
[2018-04-25 10:28] VITALS: BMI 25.8
[2018-04-25 10:41] VITALS: BP 124/83; PULSE 70; RESP 16; TEMP 97.6; O2SAT 98
--- NOTE | 2018-04-25 10:59 | C.PDOC ---
History Of Present Illness 52 year old male presents to the ED for evaluation of left upper thoracic back and muscle pain which began three days ago. Patient has been moving boxes for the past few days and states symptoms are worse with taking hot showers. Patient denies direct trauma/injury to the area, urinary/bowel incontinence, extremity numbness/weakness. Time Seen by Provider: 04/25/18 10:53 Chief Complaint (Nursing): Back Pain History Per: Patient History/Exam Limitations: no limitations Onset/Duration Of Symptoms: Days (3) Current Symptoms Are (Timing): Still Present Quality Of Discomfort: "Pain" Previous Symptoms: Back Pain Associated Symptoms: denies: New Weakness, New Numbness Additional History Per: Patient Past Medical History Reviewed: Historical Data, Nursing Documentation, Vital Signs Vital Signs: Last Vital Signs Temp 97.6 F 04/25/18 10:38 Pulse 70 04/25/18 10:38 Resp 16 04/25/18 10:38 BP 124/83 04/25/18 10:38 Pulse Ox 98 04/25/18 10:38 - Medical History PMH: Anxiety, Migraine, Seizures, Sleep Apnea Denies: Chronic Kidney Disease Surgical History: No Surg Hx - [facility] Procedures APPLICATION OF SPLINT (09/04/14) REPLAC M/S IMMOB DEV NEC (09/07/14) VENOUS PUNCTURE NEC (02/16/12) Family History: States: Stroke (Father), Hypertension (Mother) - Social History Hx Tobacco Use: Yes Hx Alcohol Use: No Hx Substance Use: No - Immunization History Hx Tetanus Toxoid Vaccination: Yes (<5yrs ago) Hx Influenza Vaccination: Yes Hx Pneumococcal Vaccination: No Review Of Systems Genitourinary: Negative for: Incontinence Musculoskeletal: Positive for: Other (left upper thoracic back pain ) Neurological: Negative for: Weakness, Numbness Physical Exam - Physical Exam Appears: Non-toxic, No Acute Distress Skin: Normal Color, Warm, Dry Head: Atraumatic, Normacephalic Eye(s): bilateral: Normal Inspection Oral Mucosa: Moist Neck: Normal ROM, Supple Chest: Symmetrical, No Deformity, No Tenderness Cardiovascular: Rhythm Regular Respiratory: Normal Breath Sounds Back: Other (minor tenderness to left paraspinal thoracic muscle) Extremity: Normal ROM, Capillary Refill (less than 2 seconds ) Neurological/Psych: Oriented x3, Normal Speech, Normal Cognition ED Course And Treatment O2 Sat by Pulse Oximetry: 98 (on RA) Pulse Ox Interpretation: Normal Progress Note: Motrin PO given. Medical Decision Making Medical Decision Making: mild L thoracic back strain ice/NSAIDS Disposition Doctor Will See Patient In The: Office Counseled Patient/Family Regarding: Studies Performed, Diagnosis - Disposition Referrals: [facility] [Outside] [facility] [Outside] [facility] [Outside] Disposition: HOME/ ROUTINE Disposition Time: 10:59 Condition: GOOD Additional Instructions: ice packs 1/2 hour per hour, nothing hot avoid hot showers motrin/advil 600 mg every 6 hours as needed Instructions: Muscle Strain (DC) Forms: [employer] (Ukrainian) - Clinical Impression Clinical Impression: Thoracic back pain - Scribe Statement The provider has reviewed the documentation as recorded by the Scribe (Lacey العلي) Provider Attestation: All medical record entries made by the Scribe were at my direction and p ersonally dictated by me. I have reviewed the chart and agree that the record accurately reflects my personal performance of the history, physical exam, medical decision making, and the department course for this patient. I have also personally directed, reviewed, and agree with the discharge instructions and disposition.
== END 2018-04-25 11:30 | disposition home or self-care (01) ==
LOC: C.ER 10:28
DX: M54.6 Pain in thoracic spine (principal)

== ENCOUNTER 2018-07-24 06:17 | Emergency (ER) | payer OTHER ==
[2018-07-24 06:18] VITALS: BMI 25.8
[2018-07-24 06:26] VITALS: TEMP 97.6
[2018-07-24 06:31] VITALS: BP 130/86; PULSE 68; RESP 16; O2SAT 98
--- NOTE | 2018-07-24 08:06 | RAD ---
Date of service: 07/24/2018 PROCEDURE: Radiographs of the Right Shoulder HISTORY: injury COMPARISON: No prior. FINDINGS: BONES: No fracture appreciated. Superior right acromial osseous [id number] noted JOINTS: . Glenohumeral joint grossly unremarkable; mild acromioclavicular arthrosis SOFT TISSUES: Normal. OTHER FINDINGS: None. IMPRESSION: No fracture or dislocation appreciated Superior right acromial osseous hypertrophy juxta-articular
--- NOTE | 2018-07-24 08:20 | C.PDOC ---
History Of Present Illness 53 y/o male presents to the ER complaining of right shoulder pain which began after he was clearing snow from tractor trailer slipped and fell onto his right shoulder. Patient states that the pain is worse with movement. Patient denies head injury, neck pain, weakness, numbness, CP, and SOB, any other injury or complaint. Time Seen by Provider: 07/24/18 07:16 Chief Complaint (Nursing): Upper Extremity Problem/Injury History Per: Patient History/Exam Limitations: no limitations Onset/Duration Of Symptoms: Hrs Current Symptoms Are (Timing): Still Present Severity: Moderate Past Medical History Reviewed: Historical Data, Nursing Documentation, Vital Signs Vital Signs: Last Vital Signs Temp 97.6 F 07/24/18 06:25 Pulse 68 07/24/18 06:25 Resp 16 07/24/18 06:25 BP 130/86 07/24/18 06:25 Pulse Ox 98 07/24/18 06:25 - Medical History PMH: Anxiety, Migraine (depakote), Seizures, Sleep Apnea Denies: Chronic Kidney Disease Other Surgeries: Hx of surgeries - [facility] Procedures APPLICATION OF SPLINT (09/04/14) REPLAC M/S IMMOB DEV NEC (09/07/14) VENOUS PUNCTURE NEC (02/16/12) Family History: States: Stroke (Father), Hypertension (Mother) - Social History Hx Tobacco Use: Yes Hx Alcohol Use: No Hx Substance Use: No - Immunization History Hx Tetanus Toxoid Vaccination: Yes (<5yrs ago) Hx Influenza Vaccination: Yes Hx Pneumococcal Vaccination: No Review Of Systems Except As Marked, All Systems Reviewed And Found Negative. Constitutional: Negative for: Fever, Chills Cardiovascular: Negative for: Chest Pain Respiratory: Negative for: Shortness of Breath Musculoskeletal: Positive for: Shoulder Pain (right shoulder pain) Neurological: Negative for: Weakness, Numbness Physical Exam - Physical Exam Appears: Non-toxic, No Acute Distress Skin: Normal Color, Warm, Dry Head: Atraumatic, Normacephalic Eye(s): bilateral: Normal Inspection Nose: Normal Oral Mucosa: Moist Neck: Supple Chest: Symmetrical, No Tenderness Cardiovascular: Rhythm Regular Respiratory: Normal Breath Sounds, No Rales, No Rhonchi, No Wheezing Back: No CVA Tenderness Extremity: No Normal ROM (decreased ROM in right shoulder), Tenderness (tenderness to anterior aspect of right shoulder) Extremity: Bilateral: Normal Color And Temperature Pulses: Right Radial: Normal Neurological/Psych: Oriented x3, Normal Speech, 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 Patient has been treated with Flexeril. Sling has been applied by senior environmental technician. He notes that his son is coming to pick him up. Pt re-eval. States feeling much better. Denies any pain or complaint at this time. Understands and agrees to immediately return to the ER if having increased swelling, pain, numbness/tingling, change in color or sensation, or any other concerning/worsening, new or continued symptoms. Pt agrees to make appt with pcp for 1-2 days from now. States will call DAVID for appointments. Patient states feeling better and would like to go home. Patient is very well appearing and non-toxic. Vital signs are stable. I discussed the results of the work-up, diagnosis and treatment. Written discharge instructions were provided to patient. Additional verbal instructions were given and discussed with patient. We discussed the importance of follow up with PCP/consultants. I also reiterated reasons to immediately return to the ER including: worsening in current symptoms and/or new, continued, or concerning symptoms. Pt understood and agreed. Disposition Counseled Patient/Family Regarding: Studies Performed, Diagnosis, Need For Followup - Disposition Referrals: [facility] [Outside] [facility] [Outside] Anson Warren MD [Staff Provider] - Disposition: HOME/ ROUTINE Disposition Time: 08:28 Condition: STABLE Prescriptions: Cyclobenzaprine [Cyclobenzaprine HCl] 10 mg PO TID PRN #15 tab PRN Reason: Muscle Spasm Ibuprofen [Motrin Tab] 800 mg PO TID PRN #30 tab PRN Reason: Pain, Moderate (4-7) Instructions: Shoulder Sprain Forms: General Discharge Instructions, [facility] (Honduran), Work Excuse - POA Present On Arrival: None - Clinical Impression Clinical Impression: Shoulder strain - Scribe Statement The provider has reviewed the documentation as recorded by the Donteibe Summen Cordell Provider Attestation: All medical record entries made by the Scribe were at my direction and personally dictated by me. I have reviewed the chart and agree that the record accurately reflects my personal performance of the history, physical exam, medical decision making, and the department course for this patient. I have also personally directed, reviewed, and agree with the discharge instructions and disposition.
== END 2018-07-24 08:43 | disposition home or self-care (01) ==
LOC: C.ER 06:17
DX: S46.911A Strain of unspecified muscle, fascia and tendon at shoulder and upper arm level, right arm, initial encounter (principal); W01.0XXA Fall on same level from slipping, tripping and stumbling without subsequent striking against object, initial encounter; Z72.0 Tobacco use

== ENCOUNTER 2018-08-13 19:15 | Emergency (ER) | payer OTHER ==
[2018-08-13 19:15] VITALS: BMI 25.8
[2018-08-13 19:39] VITALS: BP 123/85; PULSE 86; RESP 22; TEMP 97.4; O2SAT 98
[2018-08-13] MEDS ORDERED: Oxycodone/Acetaminophen 5/325 mg Tab PO STA (20:00)
[2018-08-13] MEDS ORDERED: Oxycodone/Acetaminophen 5/325 mg Tab ONE (20:07)
--- NOTE | 2018-08-13 20:26 | C.PDOC ---
History Of Present Illness 53 year old male presents to the ED for evaluation of right hand and wrist pain which began this morning. Patient states he was fixing things around his house and the attic trap door accidentally slammed onto his right hand. Patient tried applying ice to the area, with limited relief and presents to the ED for further evaluation. He denies extremity numbness/weakness or any other injuries at this time. <Natty Nagel - Last Filed: 08/13/18 22:48> History Per: Patient History/Exam Limitations: no limitations Onset/Duration Of Symptoms: Hrs Current Symptoms Are (Timing): Still Present Quality: "Pain" Additional History Per: Patient <Natty Nagel - Last Filed: 08/13/18 22:48> <Ko Fajardo - Last Filed: 08/14/18 14:00> Time Seen by Provider: 08/13/18 19:45 Chief Complaint (Nursing): Finger,Hand,&Wrist Past Medical History Reviewed: Historical Data, Nursing Documentation, Vital Signs Vital Signs: Last Vital Signs Temp 97.4 F L 08/13/18 19:36 Pulse 86 08/13/18 19:36 Resp 22 08/13/18 19:36 BP 123/85 08/13/18 19:36 Pulse Ox 98 08/13/18 19:36 - Medical History PMH: Anxiety, Migraine (depakote), Seizures, Sleep Apnea Denies: Chronic Kidney Disease Surgical History: No Surg Hx - [facility] Procedures APPLICATION OF SPLINT (09/04/14) REPLAC M/S IMMOB DEV NEC (09/07/14) VENOUS PUNCTURE NEC (02/16/12) Family History: States: Stroke (Father), Hypertension (Mother) - Social History Hx Tobacco Use: Yes Hx Alcohol Use: No Hx Substance Use: No - Immunization History Hx Tetanus Toxoid Vaccination: Yes (<5yrs ago) Hx Influenza Vaccination: Yes Hx Pneumococcal Vaccination: No <Natty Nagel - Last Filed: 08/13/18 22:48> Vital Signs: Last Vital Signs Temp 97.4 F L 08/13/18 19:36 Pulse 86 08/13/18 19:36 Resp 22 08/13/18 19:36 BP 123/85 08/13/18 19:36 Pulse Ox 98 08/13/18 22:48 - [facility] Procedures APPLICATION OF SPLINT (09/04/14) REPLAC M/S IMMOB DEV NEC (09/07/14) VENOUS PUNCTURE NEC (02/16/12) <Ko Fajardo - Last Filed: 08/14/18 14:00> Review Of Systems Musculoskeletal: Positive for: Hand Pain (right), Other (right wrist pain ) Neurological: Negative for: Weakness, Numbness <Natty Nagel - Last Filed: 08/13/18 22:48> Physical Exam - Physical Exam Appears: Non-toxic, No Acute Distress Skin: Normal Color, Warm, Dry, No Ecchymosis Extremity: Normal ROM (fingers of right hand ), Capillary Refill (less than 2 seconds ), No Deformity, Other (erythema and swelling to dorsum of right hand and wrist ) Pulses: Left Radial: Normal, Right Radial: Normal Neurological/Psych: Normal Speech, Normal Cognition, Normal Motor (right hand ), Normal Sensation (right hand ) <Natty Nagel - Last Filed: 08/13/18 22:48> ED Course And Treatment O2 Sat by Pulse Oximetry: 98 (on RA) Pulse Ox Interpretation: Normal Progress Note: Right hand XR and right wrist XR ordered and reviewed. Results are unremarkable. Patient given Perococet PO for pain. KELBY wrap applied to right hand by CP and was checked by me. On reassessment, patient is resting com fortably, showing no signs of distress and reports an improvement in his pain. Patient is stable for discharge and advised to f/u with his PMD and hand specialist within 1-2 days for further evaluation. Reassessment Condition: Improved <Natty Nagel - Last Filed: 08/13/18 22:48> Disposition - Disposition Disposition Time: 20:23 <Natty Nagel - Last Filed: 08/13/18 22:48> <Ko Fajardo - Last Filed: 08/14/18 14:00> - Disposition Referrals: Len Cardoza MD [Staff Provider] - Disposition: HOME/ ROUTINE Condition: STABLE Additional Instructions: Follow up with PMD and Hand specialist within 1-2 days. Return to ED if feel worse. 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 - Scribe Statement The provider has reviewed the documentation as recorded by the Scribe (Lacey العلي) All medical record entries made by the Scribe were at my direction and personally dictated by me. I have reviewed the chart and agree that the record accurately reflects my personal performance of the history, physical exam, medical decision making, and the department course for this patient. I have also personally directed, reviewed, and agree with the discharge instructions and disposition. <Natty Nagel - Last Filed: 08/13/18 22:48> Addendum Addendum: 08/14/18 13:58 Patient's son called. States that he gave his father a Tramadol at noon. States that their is still pain and swelling. Normal sensation in the hand. Patient told to apply ice pack and take a second Tramadol. <Ko Fajardo - Last Filed: 08/14/18 14:00>
--- NOTE | 2018-08-14 16:38 | RAD ---
PROCEDURE: Right hand radiographs Right wrist radiographs HISTORY: r/o fx COMPARISON: None available. FINDINGS: BONES: No acute displaced fracture. JOINTS: No dislocation. SOFT TISSUES: Mild soft tissue swelling. No evidence of radiopaque foreign body. OTHER FINDINGS: None. IMPRESSION: Mild soft tissue swelling. No acute displaced fracture, dislocation, or significant joint effusion identified. If symptoms persist, or if there is continued clinical concern, x-ray follow-up in 7-10 days should be considered.
== END 2018-08-13 20:34 | disposition home or self-care (01) ==
LOC: C.ER 19:15
DX: S60.221A Contusion of right hand, initial encounter (principal); W22.8XXA Striking against or struck by other objects, initial encounter; Y92.009 Unspecified place in unspecified non-institutional (private) residence as the place of occurrence of the external cause

== ENCOUNTER 2018-09-16 17:19 | Emergency (ER) | payer OTHER ==
[2018-09-16 17:20] VITALS: BMI 25.8
[2018-09-16 17:30] VITALS: O2SAT 98
[2018-09-16] MEDS ORDERED: Sodium Chloride 0.9% 1,000 ML IV STA (17:55)
[2018-09-16] MEDS ORDERED: Magnesium Sulfate 1 gm in D5W 1 GM/100 ML BAG IVPB STA (17:56)
[2018-09-16] MEDS ORDERED: Dexamethasone 4 mg/1 ml IVP STA (17:56)
[2018-09-16] MEDS ORDERED: Magnesium Sulfate 1 gm in D5W 1 GM/100 ML BAG IVPB ONE (18:04)
--- NOTE | 2018-09-16 18:34 | C.PDOC ---
History Of Present Illness 53 year old male otherwise well with Hx of migraine headaches presents with headache that began 2 days ago. Patient states he got the headache 2 days ago, took ibuprofen with improvement but woke up today with a strong headache today. Patient describes the pain as frontal, 10/10 with nausea and photophobia. He has not taken anything for the pain today. Denies vomiting, fever, or neck pain. Time Seen by Provider: 09/16/18 17:50 Chief Complaint (Nursing): Headache History Per: Patient History/Exam Limitations: no limitations Onset/Duration Of Symptoms: Days (2) Current Symptoms Are (Timing): Still Present Preceeding Symptoms: Known Migraine Symptoms Associated Symptoms: Photophobia, Nausea Past Medical History Reviewed: Historical Data, Nursing Documentation, Vital Signs Vital Signs: Last Vital Signs Temp 97.9 F 09/16/18 17:29 Pulse 68 09/16/18 17:29 Resp 20 09/16/18 17:29 BP 124/85 09/16/18 17:29 Pulse Ox 98 09/16/18 17:29 - Medical History PMH: Anxiety, Migraine (depakote), Seizures, Sleep Apnea Denies: Chronic Kidney Disease - [facility] Procedures APPLICATION OF SPLINT (09/04/14) REPLAC M/S IMMOB DEV NEC (09/07/14) VENOUS PUNCTURE NEC (02/16/12) Family History: States: Stroke (Father), Hypertension (Mother) - Social History Hx Tobacco Use: Yes Hx Alcohol Use: No Hx Substance Use: No - Immunization History Hx Tetanus Toxoid Vaccination: Yes (<5yrs ago) Hx Influenza Vaccination: Yes Hx Pneumococcal Vaccination: No Review Of Systems Constitutional: Negative for: Fever, Chills Eyes: Positive for: Other (Photophobia) Cardiovascular: Negative for: Chest Pain, Palpitations Respiratory: Negative for: Cough, Shortness of Breath Gastrointestinal: Positive for: Nausea. Negative for: Vomiting Neurological: Positive for: Headache Physical Exam - Physical Exam Appears: Non-toxic, Other (Vitals within normal limits) Skin: Normal Color, Warm Head: Atraumatic, Normacephalic Eye(s): bilateral: Normal Inspection, PERRL, EOMI Ear(s): Bilateral: Normal Nose: Normal Oral Mucosa: Moist Throat: Normal, No Erythema, No Exudate Neck: Normal, No Midline Cervical Tenderness, No Paracervical Tenderness, Supple Chest: Symmetrical, No Tenderness Cardiovascular: Rhythm Regular Respiratory: Normal Breath Sounds, No Rales, No Rhonchi, No Wheezing Gastrointestinal/Abdominal: Soft, No Tenderness Neurological/Psych: Oriented x3, Normal Speech ED Course And Treatment O2 Sat by Pulse Oximetry: 98 (Room air) Pulse Ox Interpretation: Normal Medical Decision Making Medical Decision Making: Decadron, mag sulfate, motrin, reglan, and IV fluids administered. Patient reports feeling better, states he has an emergency at home and is requesting to be discharged. Disposition Counseled Patient/Family Regarding: Diagnosis, Need For Followup - Disposition Disposition: HOME/ ROUTINE Disposition Time: 18:33 Condition: IMPROVED Instructions: Migraine Headache (DC) Forms: General Discharge Instructions, [facility] (Spanish), Work Excuse - POA Present On Arrival: None - Clinical Impression Clinical Impression: Headache, Migraine - Scribe Statement The provider has reviewed the documentation as recorded by the Scribabel Dumont All medical record entries made by the Scribe were at my direction and personally dictated by me. I have reviewed the chart and agree that the record accurately reflects my personal performance of the history, physical exam, medic al decision making, and the department course for this patient. I have also personally directed, reviewed, and agree with the discharge instructions and disposition.
[2018-09-16 18:37] VITALS: BP 136/79; PULSE 69; RESP 18; TEMP 98
== END 2018-09-16 18:37 | disposition home or self-care (01) ==
LOC: C.ER 17:19
DX: G43.909 Migraine, unspecified, not intractable, without status migrainosus (principal)
CPT/HCPCS: 96374; 96375; 99285; J1100; J2765; J3475; J7030